=== PATIENT | female | born 1930 | race Caucasian/White ===

== ENCOUNTER 2016-10-25 14:54 | Emergency (ER) | payer MEDICARE, OTHER ==
[2016-10-25 15:02] VITALS: BP 138/56
--- OUTSIDE RECORDS SUMMARY | 2016-10-25 15:31 | XMS REPORT | Continuity of Care Document ---
:1930 Author Organization [facility] ([facility]) Address [address] [place] [address] Phone [phone] Care Team Providers Name Role Phone Anisa Shola Primary Care Provider [phone] Source Comments This disclosure is being made pursuant to the Care Everywhere program, applicable federal and state laws, and may not contain all informaitonavailable regarding this patient.[facility] ([facility]) Active Allergies and Adverse Reactions Allergen Noted Date Severity Reactions Comments No Known Drug Allergies 11/22/2008 NO REACTION Current Medications Prescription Sig. Disp. Refills Start Date End Date Status MULTIVITAMINS take by Active W-MINERALS/LUT (CENTRUM mouth. SILVER PO) predniSONE 5 mg tablet Take 5 mg by Active mouth daily. PROPRANOLOL 60 mg XR Take 60 mg by 08/05/2013 Active capsule mouth daily. levothyroxine 50 mcg tablet Every other 11/06/2015 Active day 75mg potassium chloride 10 mEq Take 10 mEq 11/22/2015 Active XR tablet by mouth daily. amLODIPine 5 mg tablet Take 1 tablet 90 tablet 3 01/01/2016 Active (5 mg total) by mouth daily. hydrochlorothiazide 25 mg Take 1 tablet 90 tablet 3 01/16/2016 Active tablet (25 mg total) by mouth daily. VIT Active C/E/ZN/COPPR/LUTEIN/ZEAXAN (PRESERVISION AREDS 2 PO) simvastatin 20 mg tablet Take 1 tablet 90 tablet 1 06/03/2016 Active (20 mg total) by mouth daily. levothyroxine 75 mcg tablet Take 75 mcg 08/08/2016 Active by mouth every 48 hours. enalapril 20 mg tablet Take 20 mg by Active mouth 2 times daily. chlorpheniramine-HYDROcodon Take 10 mL by Active e 8-10 mg/5 mL suspension mouth every 12 hours as needed. aspirin 325 mg tablet Take 325 mg Active by mouth 3 times daily. 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 Right Eye Left Eye Time To Recurrence: Time To Recurrence: Date VA (D cc) CMT Status Procedure VA (D cc) CMT Status Procedure Cmts 05/19/2001 PDT 08/19/2002 PDT 10/12/2002 PDT 01/13/2007 Phaco 07/02/2010 20/50 +2 277 Avastin #[id number] 20/200 ecc 322 08/06/2010 20/40 -1 269 Avastin #[id number] cf 4' 09/17/2010 20/35 +2 262 Avastin #103361-2 CF 4 11/12/201030-2+3 267 Avastin #[id number] 20/500 01/07/2011 2030 -2 267 Avastin 03/18/2011 20/40 +2 262 Avastin #[id number] 20/150 ec +1 05/28/2011 2040 -1 244 Avastin #718781-8 20/250 204 08/22/2011 20/25 264 Avastin #[id number] 20/400 11/06/2011 20/25 +3 262 Avastin #943257-3 20/800 290 01/16/12 20/32 Avastin [id number] 5/600 04/23/2012 20/25 avastin [id number] 20/500 07/23/2012 20/25+2 254 [id number] 20/500ecc 293 10/22/2012 20/20 -2 no injection 20/500 02/11/13 20/20-2 20/200 03/15/2013 20/20 no injection needed 20/150 04/26/13 2022-2 20/350 ec 06/21/2013 20/20 cc no injection needed 20/200ecc cc 09/04/2016 20/20-2 cc 20/300 ecc cc No injection this visit Paroxysmal atrial fibrillation Overview: Formatting of this note may be different from the original. CARDIOVASCULAR PROCEDURES ECHO/MUGA: Echo (Normal EF, Normal Valves) - 02/22/2003 STRESS TESTS: MPI (Normal EF, Possible Distal-Lateral vs Diaphragm Artifact, Possible Apical Scar) - 06/26/2004 VASCULAR: Carotid Duplex (Mild Disease in Bilateral ICAs, Vertebral: Bilateral Antegrade Flow) - 05/05/2007 Carotid Duplex (Vertebral: Bilateral Antegrade Flow) - 02/22/2003 Atypical chest pain Hypertension Hyperlipidemia Most Recent Encounters Date Type Specialty Providers Description 09/04/2016 Office Visit Ophthalmology - Chief Comp: Patient Specialty Reported Reason For Visit 09/04/2016 Office Visit Ophthalmology - Default, Other Dx: Exudative age- related Specialty Billg - Defo macular degeneration of [place], both eyes with inactive Sera Villar MD choroidal neovascularization (Primary Dx) 08/29/2016 Office Visit Heart and Vascular Estelle Dacosta MD Dx: Essential hypertension (Primary Dx) Social History Tobacco Use Types Packs/Day Years Used Date Never Smoker Smokeless Tobacco: Never Used Tobacco Cessation:Counseling Given: Yes Comments: Alcohol Use Drinks/Week oz/Week Comments No Last Filed Vital Signs Vital Sign Reading Time Taken Blood Pressure 125/70 08/29/2016 10:07 AM PHOSPHORIC ACID SUPERVISOR Pulse 74 08/29/2016 10:07 AM PHOSPHORIC ACID SUPERVISOR Temperature - - Respiratory Rate - - Height 1.676 m (5' 5.98") 08/29/2016 10:07 AM PHOSPHORIC ACID SUPERVISOR Weight 71.668 kg (158 lb) 08/29/2016 10:07 AM PHOSPHORIC ACID SUPERVISOR Body Mass Index 25.51 08/29/2016 10:07 AM PHOSPHORIC ACID SUPERVISOR Oxygen Saturation - - Plan of Care Date Type Specialty Providers Description 12/04/2016 Appointment Ophthalmology - Default, Other Chief Comp: Patient Specialty Billg - Defo Reported Reason For [address] [place] [address] [phone] (Fax) 12/10/2016 Appointment Heart and Vascular Estelle Dacosta MD Chief Comp: Patient [address] [place] [address] Visit [phone] (Fax) 03/04/2017 Appointment Ophthalmology - Brittney Dang MD Chief Comp: Patient Specialty [address] [place] [address] Visit [phone] (Fax) Health Maintenance Due Date Last Done Comments Hepatitis B Vaccine (1 of 3 - 1930 Primary Series) Tdap Vaccine 1942 DIABETIC: Cholesterol 1949 Diabetic: Hdl 1949 DIABETIC: Hemoglobin A1C 1949 Diabetic: Ldl 1949 DIABETIC: Microalbumin 1949 DIABETIC: Triglycerides 1949 Td Vaccine 1949 Colonoscopy 05/05/1981 Zoster Vaccine 1991 Osteoporosis Screening (DXA 1996 Bone Density) Pneumococcal Vaccine (1 of 2 1996 - PCV13) DIABETIC: Foot Exam 12/06/2015 Influenza Vaccine: Seasonal 02/26/2016 (#1) DIABETIC: Retinal Eye Exam 09/04/2017 09/04/2016, Additional history exists 06/05/2016, 03/05/2016 Results from Last 3 Months OCT MACULA RIGHT EYE (09/04/2016 9:47 AM) Narrative OD: 252 (248). Drusen, areas of atrophy. No subretinal fluid or IRF. Unchanged from prior.
--- NOTE | 2016-10-25 15:50 | ERNOTE ---
Trauma/Assault HPI - General Stated Complaint: FALL Time Seen by Provider: 10/25/16 15:00 Source: patient, family - Immun/Allergies/Home Medications Immunizations: IMMUNIZATION HX Immunizations Up to Date Yes History of Influenza Vaccine Yes Hx Pneumococcal Vaccination Yes Allergies/Adverse Reactions: Allergies No Known Allergies Allergy (Verified 10/25/16 15:06) Home Medications: HOME MEDICATIONS Aspirin/Calcium Carbonate/Mag [Aspirin Buffered 325 mg Tab] 325 mg PO DAILY 04/10 [Last Taken 09/05/13 04:00] Enalapril Maleate 40 mg PO DAILY 09/05/13 [Last Taken Unknown] Hydrochlorothiazide 25 mg PO DAILY 09/05/13 [Last Taken Unknown] Levothyroxine Sodium [Synthroid] 75 mcg PO MOWEFRSA 09/05/13 [Last Taken Unknown ] Multivit-Min/FA/Lycopene/Lut [Centrum Silver Tablet] 1 each PO DAILY 09/05/13 [ Last Taken Unknown] Potassium Chloride 10 meq PO DAILY 09/05/13 [Last Taken Unknown] Propranolol HCl [Propranolol HCl ER] 60 mg PO DAILY 09/05/13 [Last Taken Unknown ] Simvastatin 20 mg PO HS 09/05/13 [Last Taken Unknown] amLODIPine BESYLATE [Norvasc (Amlodipine)] 5 mg PO DAILY 09/05/13 [Last Taken Unknown] Beta-Carotene(A) W-C , E/Min [Ocuvite] 1 tab PO DAILY 10/25/16 [Last Taken Unknown] Ginkgo Biloba 2 cap PO DAILY 10/25/16 [Last Taken Unknown] HYDROcodone/CHLORPHEN P-STIREX [Tussionex Pennkinetic Suspension] 5 ml PO BID [Last Taken Unknown] Naproxen [Naprosyn] 500 mg PO BID #60 tablet 10/25/16 [Last Taken Unknown] metFORMIN HCL [Metformin HCl ER] 500 mg PO QAM 10/25/16 [Last Taken Unknown] traMADol HCL [Ultram] 50 mg PO QID PRN #20 tablet 10/25/16 [Last Taken Unknown] - History of Present Illness Narrative: Patient was trying to put her walker in her trunk and it got stuck in the cement. When she tried to pull extra hard and it came free she lost her balance and fell backward landing on her butt and straining her chest wall with some low back pain as well. She describes the pain as moderate in intensity and aching in nature. Location Occurred: Reports: street Pain Location: Reports: chest, other - lower back Method of Injury: Reports: direct blow Severity: moderate Loss of Consciousness: Reports: no loss of consciousness Associated Symptoms - Trauma: Reports: denies symptoms Review of Systems - Review of Systems Constitutional: Present: See HPI EYE: Present: no symptoms reported ENT: Present: no symptoms reported Respiratory: Present: See HPI Cardiology: Present: no symptoms reported Gastrointestinal/Abdominal: Present: no symptoms reported Genitourinary: Present: no symptoms reported Musculoskeletal: Present: See HPI Skin: Present: no symptoms reported Neurological: Present: no symptoms reported Endocrine: Present: no symptoms reported Hematologic/Lymphatic: Present: no symptoms reported Psych: Present: no symptoms reported - Patient's Past Medical History Patient History - Cardiac/Respiratory: Hypertension, Hyperlipidemia Patient History - Surgical Procedures: Total Hip Replacement, Other Patient History - Other: None - Social History Living Situations: alone Abuse History: No History of abuse Psych History: No pertinent hx Smoking Status: Never smoker Alcohol Use: none Drug Use: none - Immunizations Immunizations Up to Date: Yes Hx Pneumococcal Vaccination: Yes History of Influenza Vaccine: Yes Physical Exam - Physical Exam General Appearance: Present: wd/wn, alert, moderate distress Eye Exam: Normal inspection: bilateral, PERRL: bilateral Ears, Nose, Throat: Present: normal ENT inspection, H, normal pharynx Neck: Present: normal inspection, nontender Respiratory: Present: no respiratory distress, normal breath sounds, no accessory muscle use, lungs clear, chest tenderness - at about the T8 level Cardiovascular/Chest: Present: regular rate, rhythm, no murmur, normal peripheral pulses Gastrointestinal/Abdominal: Present: normal bowel sounds, nontender, nondistended, soft, no organomegaly Rectal Exam: Present: deferred Back Exam: Present: normal range of motion, other - lumbosacral tenderness to palpation Extremity Exam: Present: normal inspection, non-tender, no edema, normal range of motion Neurological Exam: Present: alert, oriented, normal mood/affect Skin Exam: Present: normal color, warm/dry Lymphatic Exam: Present: no adenopathy ED Progress - Results and Orders Patient's Lab Results:: I have reviewed the patient's lab results. - Vital Signs Patient's Vital Signs:: I have reviewed the patient's vital signs. Vital Signs: Vital Signs 10/25/16 14:57 Temperature 36.5 C Pulse Rate 87 Respiratory 16 Rate Blood Pressure 138/56 O2 Sat by Pulse 95 Oximetry - X-Ray X-Ray #1 X-Ray: chest Interpretation: Reviewed by me X-Ray #2 X-Ray: pelvis Interpretation: Reviewed by me X-Ray #3 X-Ray: lumbosacral Interpretation: Reviewed by me - Progress/Reassessment Chief Complaint: Fall Plan - Plan Plan: Patient presents with a new onset T8 compression fracture. Condition is no discernible neurologic deficit from this fracture and is able to get around somewhat although not quite as good as before. We will try very conservative treatment at home with the #1 NSAIDs and #2 tramadol for any breakthrough pain. She'll follow-up with her family doctor for any ongoing pain management and will discuss her rehabilitation from her hip replacement surgery with physical therapy. Departure Clinical Impression: Compression fracture of thoracic vertebra Qualifiers: Encounter type: initial encounter Fracture type: closed Qualified Code(s): S22.000A - Wedge compression fracture of unspecified thoracic vertebra, initial encounter for closed fracture - Departure Disposition: Home self-care Condition: Good Instructions: Spinal Compression Fracture Referrals: Shola Lange MD [Primary Care Provider] - Prescriptions: Naproxen [Naprosyn] 500 mg PO BID #60 tablet traMADol HCL [Ultram] 50 mg PO QID PRN #20 tablet PRN Reason: Moderate Pain
== END 2016-10-25 16:42 | disposition home or self-care (01) ==
LOC: ER 14:54
DX: S22.000A Wedge compression fracture of unspecified thoracic vertebra, initial encounter for closed fracture (principal); W01.0XXA Fall on same level from slipping, tripping and stumbling without subsequent striking against object, initial encounter; Y92.410 Unspecified street and highway as the place of occurrence of the external cause; Z96.649 Presence of unspecified artificial hip joint; I10 Essential (primary) hypertension; E78.5 Hyperlipidemia, unspecified

== ENCOUNTER 2016-10-29 10:02 | Emergency (ER) | payer MEDICARE, OTHER ==
--- OUTSIDE RECORDS SUMMARY | 2016-10-29 10:16 | XMS REPORT | Continuity of Care Document ---
:1930 Author Organization [facility] ([facility]) Address [address] [place] [address] Phone [phone] Care Team Providers Name Role Phone Anisa Shola Primary Care Provider [phone] Source Comments This disclosure is being made pursuant to the Care Everywhere program, applicable federal and state laws, and may not contain all informaitonavailable regarding this patient.[facility] ([facility]) Active Allergies and Adverse Reactions Allergen [...] 01/13/2007 Phaco 07/02/2010 20/50 +2 277 Avastin #[id number] 20/200 ecc 322 08/06/2010 20/40 -1 269 Avastin #[id number] cf 4' 09/17/2010 20/35 +2 262 Avastin #[id number] CF 4 11/12/201030-2+3 267 Avastin #[id number] 20/500 01/07/2011 2030 -2 267 Avastin 03/18/2011 20/40 +2 262 Avastin #[id number] 20/150 ec +1 05/28/2011 2040 -1 244 Avastin #[id number] 20/250 204 08/22/2011 20/25 264 Avastin #[id number] 20/400 11/06/2011 20/25 +3 262 Avastin #[id number] 20/800 290 01/16/12 20/32 Avastin [id number] 5/600 04/23/2012 20/25 avastin 159068-2 20/500 07/23/2012 20/25+2 254 [id number] 20/500ecc 293 10/22/2012 20/20 -2 no injection [...] Taken Blood Pressure 125/70 08/29/2016 10:07 AM BOOMSWING OPERATOR Pulse 74 08/29/2016 10:07 AM BOOMSWING OPERATOR Temperature - - Respiratory Rate - - Height 1.676 m (5' 5.98") 08/29/2016 10:07 AM BOOMSWING OPERATOR Weight 71.668 kg (158 lb) 08/29/2016 10:07 AM BOOMSWING OPERATOR Body Mass Index 25.51 08/29/2016 10:07 AM BOOMSWING OPERATOR Oxygen Saturation - - Plan of Care Date Type Specialty Providers Description 12/04/2016 Appointment Ophthalmology - Default, Other Chief Comp: Patient Specialty Billg - Defo Reported Reason For [address] [place] [address] [phone] (Fax) 12/10/2016 Appointment Heart and Vascular Estelle Dacosta MD Chief Comp: Patient [address] [place] [address] Visit [phone] (Fax) 03/04/2017 Appointment Ophthalmology - Brittney Dang MD Chief Comp: Patient Specialty [address] [place] [address] Visit [phone] (Fax) Health Maintenance Due Date Last Done [...]
--- NOTE | 2016-10-29 13:21 | ERNOTE ---
Back Pain ER HPI Date of Service: 10/29/16 Presenting Symptoms: injury/pain to back Time Seen by Provider: 10/29/16 10:10 Source: patient Exam Limitations: no limitations Immunizations: IMMUNIZATION HX Immunizations Up to Date Yes History of Influenza Vaccine Yes Hx Pneumococcal Vaccination Yes Allergies/Adverse Reactions: Allergies No Known Allergies Allergy (Verified 10/29/16 10:29) Home Medications: HOME MEDICATIONS Aspirin/Calcium Carbonate/Mag [Aspirin Buffered 325 mg Tab] 325 mg PO DAILY 04/10 [Last Taken 09/05/13 04:00] Enalapril Maleate 40 mg PO DAILY 09/05/13 [Last Taken Unknown] Hydrochlorothiazide 25 mg PO DAILY 09/05/13 [Last Taken Unknown] Levothyroxine Sodium [Synthroid] 75 mcg PO MOWEFRSA 09/05/13 [Last Taken Unknown ] Multivit-Min/FA/Lycopene/Lut [Centrum Silver Tablet] 1 each PO DAILY 09/05/13 [ Last Taken Unknown] Potassium Chloride 10 meq PO DAILY 09/05/13 [Last Taken Unknown] Propranolol HCl [Propranolol HCl ER] 60 mg PO DAILY 09/05/13 [Last Taken Unknown ] Simvastatin 20 mg PO HS 09/05/13 [Last Taken Unknown] amLODIPine BESYLATE [Norvasc (Amlodipine)] 5 mg PO DAILY 09/05/13 [Last Taken Unknown] Beta-Carotene(A) W-C , E/Min [Ocuvite] 1 tab PO DAILY 10/25/16 [Last Taken Unknown] Ginkgo Biloba 2 cap PO DAILY 10/25/16 [Last Taken Unknown] Naproxen [Naprosyn] 500 mg PO BID #60 tablet 10/25/16 [Last Taken Unknown] metFORMIN HCL [Metformin HCl ER] 500 mg PO QAM 10/25/16 [Last Taken Unknown] traMADol HCL [Ultram] 50 mg PO QID PRN #20 tablet 10/25/16 [Last Taken Unknown] Hydrocodone/Chlorpheniramine [Vituz Solution] 5 ml PO BID 10/29/16 [Last Taken Unknown] Narrative: 86-year-old female presenting to the emergency room after she fell at home landing on her back. He fell and hurt her back on . Patient has significant back pain tender to touch. Patient states she was bending over to pick something up when she fell landing on her back. Date (Duration): 10/29/16 Timing: Reports: constant Quality/Severity: Reports: mild Location of pain: Reports: mid back Body Front/Back Adult: 1 - pain to this area here Recent Injury?: Reports: yes Possible Precipitating Factor: Reports: fall/near fall Modifying Factors - (Improves): Reports: nothing Modifying Factors - (Worsens): Reports: supine position Associated Symptoms: Denies: fever/chills, sweating, problems urinating, difficulty walking, lightheadedness, numbess/weakness in legs Prior Treament: Reports: recently seen - on 10/25 r/t fall with compression fracture dx Review of Systems - Review of Systems Constitutional: Present: no symptoms reported. Absent: weakness, malaise, weight loss - son states she has had poor po intake EYE: Present: no symptoms reported. Absent: blurred vision ENT: Present: no symptoms reported Respiratory: Present: no symptoms reported. Absent: shortness of breath Cardiology: Present: no symptoms reported. Absent: syncope, edema Gastrointestinal/Abdominal: Present: no symptoms reported Genitourinary: Present: no symptoms reported Musculoskeletal: Present: See HPI, back pain Skin: Present: no symptoms reported Neurological: Present: no symptoms reported. Absent: headache, dizziness/light- headedness, numbness, tingling Endocrine: Present: no symptoms reported Hematologic/Lymphatic: Present: no symptoms reported Psych: Present: no symptoms reported - Narrative Narrative: pt recently fell and dx with a compression fx of T8 - Patient's Past Medical History Patient History - Medical: Arthritis, Cataracts, Diabetes Type 2, UTI'S Patient History - Cardiac/Respiratory: Hypertension, Hyperlipidemia Patient History - Cancer: No Hx of Cancer Patient History - Surgical Procedures: Total Hip Replacement, T & A Patient History - Other: None LMP (females 10-50): Menopausal - Social History Living Situations: alone Abuse History: No History of abuse Psych History: No pertinent hx Alcohol Use: none Drug Use: none - Immunizations Immunizations Up to Date: Yes Hx Pneumococcal Vaccination: Yes History of Influenza Vaccine: Yes Physical Exam - Physical Exam Narrative: 86-year-old patient arrived via EMS status post fall. Patient states she was getting out of bed using her walker bending over to pick something up and fell landing on her back. States that she had taken her pain medicine prior to her fall. She does have some discomfort but it is able to be relieved with positioning on the stretcher. denies hitting her head. General Appearance: Present: wd/wn, alert, no apparent distress Eye Exam: Normal inspection: bilateral Ears, Nose, Throat: Present: normal ENT inspection Neck: Present: normal inspection, nontender, full range of motion Respiratory: Present: no respiratory distress, lungs clear Cardiovascular/Chest: Present: regular rate, rhythm, no murmur Peripheral Pulses: N=norm/S=strong/W=weak/B=bound/A=absent: Dorsalis-pedis (R): Normal, Dorsalis-pedis (L): Normal Gastrointestinal/Abdominal: Present: normal bowel sounds, nontender, soft Back Exam: Present: vertebral tenderness Extremity Exam: Present: normal inspection, no edema Neurological Exam: Present: alert, oriented, normal mood/affect Skin Exam: Present: normal color Lymphatic Exam: Present: no adenopathy ED Progress - Vital Signs Vital Signs: Vital Signs 10/29/16 10/29/16 10/29/16 10:10 10:31 11:20 Temperature 36.9 C 36.9 C Pulse Rate 94 96 Respiratory 14 Rate Blood Pressure 163/79 163/79 190/88 O2 Sat by Pulse 95 92 Oximetry 10/29/16 10/29/16 10/29/16 11:35 12:05 12:35 Temperature Pulse Rate 99 90 91 Respiratory Rate Blood Pressure 188/74 164/75 175/76 O2 Sat by Pulse 93 94 96 Oximetry - X-Ray X-Ray #1 X-Ray: thoracic Interpretation: Reviewed by me X-ray Comments: The imaging was compared to previous chest x-ray from 10/25/2016, which demonstrates compression deformity within the mid thoracic spine, which was previously characterized as being on T8. I believe the level might have been miscounted and this may have been due to obscuration of the lower thoracic spine to allow for counting of the ribs, and overall the current examination most likely represents stable appearance of a T7 compression fracture. This could still represent acute on chronic fracture and clinical correlation is advised. Follow-up by routine thoracic spine MRI can be considered unless otherwise clinically indicated. Electronically signed by Elizabeth Walker M.D.. - Progress/Reassessment Chief Complaint: Back Pain Progress:: Improved Plan - Plan Plan: This provider spoke with the patient's primary care physician. He has been updated regarding her fall and request a secondary follow-up apt. Physician is also aware that a family independence case manager has been involved regarding patient's frequent falls the need for possible assistance at home versus assisted living. Patient is also aware of family's concerns regarding her need for assistance at home or assisted living. Patient agrees to these recommendations. Departure Clinical Impression: Compression fracture of thoracic vertebra Qualifiers: Encounter type: initial encounter Fracture type: closed Qualified Code(s): S22.000A - Wedge compression fracture of unspecified thoracic vertebra, initial encounter for closed fracture - Departure Disposition: Home Follow Up Needed Condition: Stable Instructions: Spinal Compression Fracture Additional Instructions: continue previous home medications and previous orders regarding compression fraction. Follow-up with your primary care doctor tomorrow. you may continue previous home pain medication as directed. return to the emergency room if symptoms persist or you develop increased pain in her back or numbness or tingling in her lower extremities. May use ice or heat 20 Minutes on and 20 min off. . Referrals: Shola Lange MD [Staff Physician] -
[2016-10-29 13:34] VITALS: BP 151/74
== END 2016-10-29 14:06 | disposition home or self-care (01) ==
LOC: ER 10:02
DX: S22.000A Wedge compression fracture of unspecified thoracic vertebra, initial encounter for closed fracture (principal); W06.XXXA Fall from bed, initial encounter; Z91.81 History of falling; Y93.89 Activity, other specified; Y92.003 Bedroom of unspecified non-institutional (private) residence as the place of occurrence of the external cause; M19.90 Unspecified osteoarthritis, unspecified site; E78.5 Hyperlipidemia, unspecified; E11.9 Type 2 diabetes mellitus without complications; I10 Essential (primary) hypertension

== ENCOUNTER 2016-11-07 08:38 | Inpatient (IN) | payer MEDICARE, OTHER ==
--- OUTSIDE RECORDS SUMMARY | 2016-11-07 09:58 | XMS REPORT | Continuity of Care Document ---
:1930 Author Organization [facility] ([facility]) Address [address] [place] [address] Phone [phone] Care Team Providers Name Role Phone Anisa Shola Primary Care Provider [phone] Source Comments This disclosure is being made pursuant to the Care Everywhere program, applicable federal and state laws, and may not contain all informaitonavailable regarding this patient.[facility] ([facility]) Active Allergies and Adverse Reactions Allergen [...] 01/13/2007 Phaco 07/02/2010 20/50 +2 277 Avastin #[id number] 20/200 ecc 322 08/06/2010 20/40 -1 269 Avastin #[id number] cf 4' 09/17/2010 20/35 +2 262 Avastin #[id number] CF 4 11/12/201030-2+3 267 Avastin #[id number] 20/500 01/07/2011 2030 -2 267 Avastin 03/18/2011 20/40 +2 262 Avastin #[id number] 20/150 ec +1 05/28/2011 2040 -1 244 Avastin #[id number] 20/250 204 08/22/2011 20/25 264 Avastin #[id number] 20/400 11/06/2011 20/25 +3 262 Avastin #[id number] 20/800 290 01/16/12 20/32 Avastin [id number] 5/600 04/23/2012 20/25 avastin [id number] 20/500 07/23/2012 20/25+2 254 [id number] 20/500ecc 293 10/22/2012 20/20 -2 no injection [...] Taken Blood Pressure 125/70 08/29/2016 10:07 AM CLINICAL REVIEW SPECIALIST Pulse 74 08/29/2016 10:07 AM CLINICAL REVIEW SPECIALIST Temperature - - Respiratory Rate - - Height 1.676 m (5' 5.98") 08/29/2016 10:07 AM CLINICAL REVIEW SPECIALIST Weight 71.668 kg (158 lb) 08/29/2016 10:07 AM CLINICAL REVIEW SPECIALIST Body Mass Index 25.51 08/29/2016 10:07 AM CLINICAL REVIEW SPECIALIST Oxygen Saturation - - Plan of Care Date Type Specialty Providers Description 12/04/2016 Appointment Ophthalmology - Default, Other Chief Comp: Patient Specialty Billg - Defo Reported Reason For [address] [place] [address] [phone] (Fax) 12/10/2016 Appointment Heart and Vascular Estelle Dacosta MD Chief Comp: Patient [address] [place] [address] Visit [phone] (Fax) 03/04/2017 Appointment Ophthalmology - Brittney Dang MD Chief Comp: Patient Specialty [address] [place] [address] Visit [phone] (Fax) Health Maintenance Due Date Last Done [...]
[2016-11-07] MEDS ORDERED: ONDANSETRON HCL/PF 2 MG/ML VIAL IV PRN (10:16)
[2016-11-07] MEDS ORDERED: HYDROmorphone HCL 1 MG/ML DISP.SYRIN IV ONE (11:30)
[2016-11-07] MEDS: POTASSIUM CHLORIDE 40 MEQ in NORMAL SALINE 1,000 ML IV SCH ×2 (11:43→20:03)
[2016-11-07] MEDS ORDERED: BISACODYL 10 MG SUPP.RECT RC PRN (12:40)
[2016-11-07] MEDS ORDERED: SUCRALFATE 1 G/10 ML UDC PO ONE (14:17)
--- NOTE | 2016-11-07 14:17 | HP ---
Chief Complaint - Chief Complaint Date of Service: 11/07/16 Time of Service: 09:00 Chief Complaint: Fatigue, abdominal pain History of Present Illness: Pt. presented to office in moderate distress complaining of fatigue, malaise, band like squeezing that comes and goes just below her bra line. She states that she has finally had a BM that was normal yesterday and doesn't feel abdominal upset like she did. No hemotemisis or hematochezia or GERD sx. She mainly states that the pain is her biggest issue and she hasn't been eating well because of the pain. She had been taking naproxen but that was stopped a few days ago. Labs were done in the office that showed: Anemia 11.2 which is stable from a previous recent 11.4 (down from prior 14 though) Sodium of 128 potassium of 3.0 She was admitted for IVF to try to correct the sodium and potassium and to control her pain. Additional tx for her stomach will also be done. - Patient's Past Medical History Patient History - Medical: Arthritis, Cataracts, Diabetes Type 2, UTI'S Patient History - Cardiac/Respiratory: Hypertension, Hyperlipidemia Patient History - Cancer: No Hx of Cancer Patient History - Surgical Procedures: Total Hip Replacement, T & A Patient History - Other: None - Family History Mother Family History - Medical: , Dementia Family History - Cardiac/Respiratory: No pertinent hx Father Family History - Medical: Family History - Cardiac/Respiratory: COPD Family History - Cancer: No pertinent family hx - Social History Living Situations: assisted living Abuse History: No History of abuse Psych History: No pertinent hx Smoking Status: Never smoker Have you smoked in the past 12 months: No Do you dip or chew tobacco: No Alcohol Use: none Drug Use: none - Immunizations Immunizations Up to Date: Yes Hx Pneumococcal Vaccination: Yes History of Influenza Vaccine: Yes Review Of Systems (GEN) - Review of Systems Generalized/Overall Review: Present: Weakness, Malaise, Fatigue. Absent: Chills , Fever EENTM: Present: No Symptoms Reported Respiratory: Present: No Symptoms Reported Cardiac: Present: No Symptoms Reported Abdominal: Present: Nausea, Abdominal Pain. Absent: Hematemesis, Constipation, Diarrhea, Melena, Bright blood from rectum Genitourinary: Present: No Symptoms Reported Musculoskeletal: Present: Back Pain Neurological: Present: Anxiety, Weakness Skin: Present: No Symptoms Reported Endocrine: Present: No Symptoms Reported - reports sugars have been ok Immunizations: IMMUNIZATION HX Immunizations Up to Date Yes History of Influenza Vaccine Yes Hx Pneumococcal Vaccination Yes Allergies/Adverse Reactions: Allergies Allergy/AdvReac Type Severity Reaction Status Date / Time No Known Allergies Allergy Verified 11/07/16 11:16 Home Medications: HOME MEDICATIONS Enalapril Maleate 40 mg PO DAILY 09/05/13 [Last Taken Unknown] Hydrochlorothiazide 25 mg PO DAILY 09/05/13 [Last Taken Unknown] Levothyroxine Sodium [Synthroid] 75 mcg PO Q48H 09/05/13 [Last Taken 11/07/16] Multivit-Min/FA/Lycopene/Lut [Centrum Silver Tablet] 1 each PO DAILY 09/05/13 [ Last Taken Unknown] Potassium Chloride 10 meq PO DAILY 09/05/13 [Last Taken Unknown] Propranolol HCl [Propranolol HCl ER] 60 mg PO DAILY 09/05/13 [Last Taken Unknown ] Simvastatin 20 mg PO HS 09/05/13 [Last Taken Unknown] amLODIPine BESYLATE [Norvasc (Amlodipine)] 5 mg PO DAILY 09/05/13 [Last Taken Unknown] Ginkgo Biloba 2 cap PO DAILY 10/25/16 [Last Taken Unknown] Naproxen [Naprosyn] 500 mg PO BID #60 tablet 10/25/16 [Last Taken Unknown] metFORMIN HCL [Metformin HCl ER] 500 mg PO QAM 10/25/16 [Last Taken Unknown] traMADol HCL [Ultram] 50 mg PO QID PRN #20 tablet 10/25/16 [Last Taken Unknown] Hydrocodone/Chlorpheniramine [Vituz Solution] 5 ml PO BID 10/29/16 [Last Taken Unknown] Aspirin 325 mg PO BID 11/07/16 [Last Taken Unknown] Beta-Carotene(A) W-C , E/Min [Ocuvite] 1 tab PO DAILY 11/07/16 [Last Taken Unknown] Bisacodyl [Dulcolax Suppository] 10 mg RC DAILY PRN 11/07/16 [Last Taken Unknown ] Levothyroxine Sodium [Synthroid] 50 mcg PO Q48H 11/07/16 [Last Taken 11/06/16] Omeprazole 20 mg PO DAILY 11/07/16 [Last Taken Unknown] predniSONE [Prednisone] 5 mg PO DAILY 11/07/16 [Last Taken Unknown] tiZANidine HCL [Zanaflex] 2 mg PO HS 11/07/16 [Last Taken Unknown] Exam - Exam Vital Signs: Vital Signs - Last Taken Temp 36.7 C 11/07/16 11:16 Pulse 78 11/07/16 11:16 Resp 18 11/07/16 11:16 BP 182/52 11/07/16 11:16 Pulse Ox 98 11/07/16 11:16 Constitutional: Present: Alert, Oriented x3, Moderate distress, Elderly ENT Exam: Present: hearing grossly normal Eye Exam: bilateral eye: normal inspection, PERRL, EOMI Neck: Present: supple Back Exam: Present: vertebral tenderness Respiratory: Present: lungs clear, normal breath sounds, no respiratory distress , no accessory muscle use Cardiovascular/Chest: Present: regular rate, rhythm, no murmur Peripheral Pulses: dorsalis-pedis (R): 2+, dorsalis-pedis (L): 2+ Abdomen: Present: Normal bowel sounds, soft, nontender, no rebound tenderness, no hepatospenomegaly /Rectal: Present: Exam deferred Extremity: Present: no pedal edema, no calf tenderness Skin Exam: Present: normal color Neurologic: Present: oriented x 3 Appearance: Present: appropriate appearance, appropriate insight Eye contact: Present: cooperative, good eye contact, normal speech Thoughts: Present: normal thought pattern, no apparent hallucination Assessment/Plan - Assessment/Plan (1) Hypokalemia Assessment: will do K in IVF 40meq in each of 2 L Problem: Acute (2) Anemia Assessment: stable, follow for now Problem: Acute Qualifiers: Anemia type: other cause (3) Abdominal pain Assessment: Believe may be PUD, continue omeprazole, add carafate. Problem: Acute Qualifiers: Abdominal location: epigastric Qualified Code(s): R10.13 - Epigastric pain (4) Hyponatremia Assessment: will try to correct with IVF. if this doesn't improve things quickly will change to 3%saline Problem: Acute (5) Compression fracture of thoracic vertebra Assessment: pain does not appear to be controlled with PO meds. Will do trial with different regimen to see if we can come up with a better outpt regimen, though will continue oxycodone for now as well. IV dilaudid will be trialed, consider mscontin or oxycontin. Problem: Acute (6) Discharge planning issues Assessment: discharge vs. making inpatient will be determined by whether her sodium corrects overnight or not and whether any additional investigations may need to be done. Problem: Acute (7) Diabetes Assessment: will do consistent carb diet. consider accuchecks but her sugars have been good at home. Problem: Acute Qualifiers: Diabetes mellitus type: type 2 Diabetes mellitus complication status: without complication
[2016-11-07] MEDS ORDERED: METHYLPREDNISOLONE SOD SUCC/PF 40 MG/ML VIAL IV ONE (14:56)
[2016-11-07] MEDS: oxyCODONE HCL 5 MG TABLET PO PRN ×2 (15:10→20:20)
[2016-11-07] MEDS ORDERED: METHYLPREDNISOLONE SOD SUCC 80 MG in WATER FOR INJ.,BACTERIOSTATIC 0 ML IV ONE (15:30)
[2016-11-07] MEDS: MORPHINE SULFATE 15 MG TABLET.SA PO SCH (16:56)
[2016-11-07] MEDS: SUCRALFATE 1 G/10 ML UDC PO SCH ×2 (16:56→19:59)
[2016-11-07] MEDS: SIMVASTATIN 20 MG TABLET PO SCH (19:59)
[2016-11-07] MEDS: PROPRANOLOL HCL 60 MG CAPSULE.SA PO SCH (20:04)
[2016-11-08] MEDS: oxyCODONE HCL 5 MG TABLET PO PRN ×3 (02:40→20:20)
[2016-11-08] MEDS: MORPHINE SULFATE 15 MG TABLET.SA PO SCH ×2 (04:13→17:05)
[2016-11-08 06:46] LABS: Albumin * 2.6 gm/dl (3.4-5.0); Anion Gap 12.3 mmol/L (6.8-13.8); BUN/Creatinine Ratio 14.5 (9.0-21.6); Bilirubin, Total 0.4 mg/dL (0.0-1.1); Ca. Corrected For Albumin 8.7 mg/dL (8.4-10.2); Calcium * 7.9 mg/dL (7.9-10.9); Carbon Dioxide 26.1 mmol/L (24-32.6); Potassium 4.4 mmol/L (3.4-4.6); Total Protein 6.3 gm/dL (6.2-8.2)
--- NOTE | 2016-11-08 06:58 | PN ---
Progess Note - Interim Narrative: 11/08/16 06:55 Still having pain at times, but seems better controlled with the MsContin. Labs still pending this am. Will continue carafate, do a couple more doses of solumedrol and continue IVF NS for now pending lab results. Still believe her pain is mainly due to compression fracture, PUD, more doubtful this is ischemic bowel. Anticipate her being discharged later today.
[2016-11-08] MEDS ORDERED: LEVOTHYROXINE SODIUM 50 MCG TABLET PO SCH (07:00)
[2016-11-08] MEDS: SUCRALFATE 1 G/10 ML UDC PO SCH ×4 (07:04→20:19)
[2016-11-08] MEDS: PANTOPRAZOLE SODIUM 20 MG TABLET.DR PO SCH (07:04)
[2016-11-08] MEDS: METHYLPREDNISOLONE SOD SUCC 80 MG in WATER FOR INJ.,BACTERIOSTATIC 0 ML IV SCH ×3 (07:57→18:30)
[2016-11-08] MEDS: NORMAL SALINE 1,000 ML IV PRN (10:01)
[2016-11-08] MEDS: ENALAPRIL MALEATE 20 MG TABLET PO SCH (10:02)
[2016-11-08] MEDS: HYDROCHLOROTHIAZIDE 25 MG TABLET PO SCH (10:02)
--- NOTE | 2016-11-08 13:56 | PN ---
Subjective - Date and Time Seen Date: 11/08/16 Time: 13:50 Subjective Narrative: Feeling better, appetite better, pain still troublesome but is also improved. Weakness is better but still requiring a little assistance to get around. Objective - Review of Systems Generalized/Overall Review: Reports: Weakness EENTM: Reports: No Symptoms Reported Respiratory: Reports: No Symptoms Reported Cardiac: Reports: No Symptoms Reported Abdominal: Reports: Nausea, Abdominal Pain. Denies: Constipation, Diarrhea Genitourinary Symptoms: Reports: No Symptoms Reported Musculoskeletal Complaints: Reports: Back Pain Neurological: Reports: Weakness Skin: Reports: No Symptoms Reported Endocrine: Reports: No Symptoms Reported - Vitals Vitals: Last Vital Signs Temp 36.7 C 11/08/16 11:18 Pulse 79 11/08/16 11:18 Resp 18 11/08/16 11:18 BP 146/47 11/08/16 11:18 Pulse Ox 96 11/08/16 11:18 - Abnormal Lab Findings Abnormal Lab Findings: Abnormal Lab Results 11/08/16 Range/Units 05:40 Sodium 129 L (132-142) mmol/L Chloride 95 L (97-106) mmol/L Random Glucose 216 H D (70-110) mg/dL Albumin 2.6 L (3.4-5.0) gm/dl - Exam Constitutional: Present: Alert, Oriented x3, Cooperative, Mild distress, Elderly ENT Exam: Present: hearing grossly normal Neck: Present: supple Respiratory: Present: lungs clear, normal breath sounds, no respiratory distress , no accessory muscle use Cardiovascular/Chest: Present: regular rate, rhythm, no murmur Abdomen: Present: Normal bowel sounds, soft, nontender, no rebound tenderness, no hepatospenomegaly Extremity: Present: no calf tenderness Skin Exam: Present: normal color Neurologic: Present: normal mood/affect, oriented x 3 Appearance: Present: appropriate appearance, appropriate insight, neat Eye contact: Present: cooperative, good eye contact, normal speech Thoughts: Present: normal thought pattern, no apparent hallucination Assessment/Plan - Problems/Diagnosis (1) Hypokalemia Problem: Resolved Narrative: resolved. (2) Anemia Problem: Acute Qualifiers: Anemia type: other cause Narrative: stable no tx at this time (3) Abdominal pain Problem: Acute Qualifiers: Abdominal location: epigastric Qualified Code(s): R10.13 - Epigastric pain (4) Hyponatremia Problem: Acute Narrative: levels still low, will contine IVF and see if she won't improve her PO intake. repeat Na in am. Possibly start 3% saline this pm (5) Compression fracture of thoracic vertebra Problem: Acute Narrative: pain is better controlled with combination of Ms Contin and oxycodone. will continue unchanged for now. Steroids also may have helped so will continue these as well. (6) Discharge planning issues Problem: Acute Narrative: hopefully home tomorrow. (7) Diabetes Problem: Acute Qualifiers: Diabetes mellitus type: type 2 Diabetes mellitus complication status: without complication Narrative: sugars high this am, will start accuchecks and lose dose SSI.
[2016-11-08] MEDS ORDERED: SODIUM CHLORIDE 3 % 500 ML IV SCH (14:00)
[2016-11-08] MEDS: INSULIN REGULAR, HUMAN 100 UNITS/ML VIAL SC SCH ×2 (17:43→20:21)
[2016-11-08] MEDS: PROPRANOLOL HCL 60 MG CAPSULE.SA PO SCH (18:17)
[2016-11-08] MEDS: SIMVASTATIN 20 MG TABLET PO SCH (20:20)
[2016-11-09] MEDS: METHYLPREDNISOLONE SOD SUCC 80 MG in WATER FOR INJ.,BACTERIOSTATIC 0 ML IV SCH ×3 (02:20→07:24)
[2016-11-09] MEDS: NORMAL SALINE 1,000 ML IV PRN (03:46)
[2016-11-09] MEDS: MORPHINE SULFATE 15 MG TABLET.SA PO SCH (03:49)
[2016-11-09] MEDS: oxyCODONE HCL 5 MG TABLET PO PRN ×2 (03:49→11:24)
[2016-11-09 05:27] LABS: Anion Gap 12.3 mmol/L (6.8-13.8); BUN/Creatinine Ratio 21.5 (9.0-21.6); Carbon Dioxide 29.3 mmol/L (24-32.6); Estimated Creat Clear 61.5; Potassium 3.6 mmol/L (3.4-4.6)
[2016-11-09 06:20] VITALS: BP 153/56
[2016-11-09] MEDS ORDERED: LEVOTHYROXINE SODIUM 75 MCG TABLET PO SCH (07:00)
[2016-11-09] MEDS: PANTOPRAZOLE SODIUM 20 MG TABLET.DR PO SCH (07:14)
[2016-11-09] MEDS: SUCRALFATE 1 G/10 ML UDC PO SCH ×2 (07:14→11:25)
[2016-11-09] MEDS: INSULIN REGULAR, HUMAN 100 UNITS/ML VIAL SC SCH (07:15)
--- NOTE | 2016-11-09 08:49 | DS ---
(1) Hypokalemia Problem: Resolved (2) Anemia Problem: Acute Qualifiers: Anemia type: other cause (3) Abdominal pain Problem: Acute Qualifiers: Abdominal location: epigastric Qualified Code(s): R10.13 - Epigastric pain (4) Hyponatremia Problem: Acute (5) Compression fracture of thoracic vertebra Problem: Acute (6) Discharge planning issues Problem: Acute (7) Diabetes Problem: Acute Qualifiers: Diabetes mellitus type: type 2 Diabetes mellitus complication status: without complication Description of Stay: Pt. admitted for JSOE abdominal pain concerning for a bleeding ulcer given drop in Hb; vertebral fx with severe pain; hyponatremia, hypokalemia with associated weakness and unable to take reasonable PO therefore the need for fluids to correct. Abdominal pain/PUD: pt. continued on omeprazole and had carafate added. This along with IVF seemed to improve her appetite and she was taking good po at time of discharge. Vertebral fx with severe pain: Pt. was continued on prn oxycodone, but was started on scheduled MSContin which seemed to give her more consistent pain control. 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 DM: sugars were high on IV steroids. expect this to resolve as she goes home off the steroids and resumes normal activity and diet. She was on a consistent carb diet here. If sugars remain high we can restart metformin at home. Hyponatremia: 128 on admit. she was on NS for 36hrs without any significant improvements in her Na levels. 500ml of 3% run at 60ml/hr x 1, then continued on NS and her sodium corrected the am of d/c to 137. Hypokalemia: 3.0 on admit. corrected within 24hrs with 2 40Meq in 2 L NS. no additional tx done, should stay at reasonable level with her being able to take PO again. Anemia: Hb was 11.2, no signs of continued bleeding. Believe source was stomach therefore carafate added to her omeprazole. Will follow this outpt. No hemodynamic instability from this level. Pt. was ambulating with a walker without assistance, smiling and full of energy at time of discharge. She was alert and oriented and definitely ready to be discharged. Procedures Performed: none Discharge Disposition: [facility] Disposition: [facility] Condition: Good Discharge Activity: Activity as tolerated - use walker when ambulating. Discharge Diet: Consistent carbs Referrals: Shola Lange MD [Primary Care Provider] - One Week Additional Patient Instructions (free text): Resume [facility] at discharge. Please fax orders upon discharge and call report. Prescriptions (Any new or edited meds): Morphine Sulfate [Ms Contin] 15 mg PO Q12H #30 tablet. Sucralfate [Carafate Suspension] 1 g PO ACHS #120 udc Complete Home Medications List: Complete Home Medication List: Enalapril Maleate 40 mg PO DAILY 09/05/13 Hydrochlorothiazide 25 mg PO DAILY 09/05/13 Levothyroxine Sodium [Synthroid] 75 mcg PO Q48H 09/05/13 Multivit-Min/FA/Lycopene/Lut [Centrum Silver Tablet] 1 each PO DAILY 09/05/13 Potassium Chloride 10 meq PO DAILY 09/05/13 Propranolol HCl [Propranolol HCl ER] 60 mg PO DAILY 09/05/13 Simvastatin 20 mg PO HS 09/05/13 amLODIPine BESYLATE [Norvasc] 5 mg PO DAILY 09/05/13 metFORMIN HCL [Metformin HCl ER] 500 mg PO QAM 10/25/16 traMADol HCL [Ultram] 50 mg PO QID PRN #20 tablet 10/25/16 Hydrocodone/Chlorpheniramine [Vituz Solution] 5 ml PO BID 10/29/16 Aspirin 325 mg PO BID 11/07/16 Beta-Carotene(A) W-C , E/Min [Ocuvite] 1 tab PO DAILY 11/07/16 Bisacodyl [Dulcolax Suppository] 10 mg RC DAILY PRN 11/07/16 Levothyroxine Sodium [Synthroid] 50 mcg PO Q48H 11/07/16 Omeprazole 20 mg PO DAILY 11/07/16 predniSONE [Prednisone] 5 mg PO DAILY 11/07/16 tiZANidine HCL [Zanaflex] 2 mg PO HS 11/07/16 Morphine Sulfate [Ms Contin] 15 mg PO Q12H #30 tablet.sa 11/09/16 Morphine Sulfate [Ms Contin] 15 mg PO Q12H #30 tablet. 11/09/16 Sucralfate [Carafate Suspension] 1 g PO ACHS #120 udc 11/09/16
[2016-11-09] MEDS: ENALAPRIL MALEATE 20 MG TABLET PO SCH (08:50)
[2016-11-09] MEDS: HYDROCHLOROTHIAZIDE 25 MG TABLET PO SCH (08:50)
== END 2016-11-09 11:30 | disposition home health service (06) | DRG 641 ==
LOC: MS 08:38 → OBSVTOIN 11-08 08:38
PROVIDERS: ADMIT Family Medicine; ATTEND Family Medicine
DX: E87.1 Hypo-osmolality and hyponatremia (principal); E87.6 Hypokalemia; R10.13 Epigastric pain; M48.54XD Collapsed vertebra, not elsewhere classified, thoracic region, subsequent encounter for fracture with routine healing; E11.9 Type 2 diabetes mellitus without complications; I10 Essential (primary) hypertension; E78.5 Hyperlipidemia, unspecified; Z79.82 Long term (current) use of aspirin
CPT/HCPCS: 36415; 80048; 80053; 87081; G0378; G0379

== ENCOUNTER 2016-11-11 08:57 | Emergency (ER) | payer MEDICARE, OTHER ==
[2016-11-11] MEDS ORDERED: HYDROmorphone HCL 1 MG/ML DISP.SYRIN IV ONE (10:21)
--- NOTE | 2016-11-11 10:24 | ERNOTE ---
Back Pain ER HPI Date of Service: 11/11/16 Presenting Symptoms: injury/pain to back, hx chronic back pain Time Seen by Provider: 11/11/16 10:05 Source: patient Exam Limitations: no limitations Immunizations: IMMUNIZATION HX Immunizations Up to Date Yes History of Influenza Vaccine Yes Hx Pneumococcal Vaccination Yes Allergies/Adverse Reactions: Allergies No Known Allergies Allergy (Verified 11/11/16 09:06) Home Medications: HOME MEDICATIONS Enalapril Maleate 40 mg PO DAILY 09/05/13 [Last Taken Unknown] Hydrochlorothiazide 25 mg PO DAILY 09/05/13 [Last Taken Unknown] Levothyroxine Sodium [Synthroid] 75 mcg PO Q48H 09/05/13 [Last Taken 11/07/16] Multivit-Min/FA/Lycopene/Lut [Centrum Silver Tablet] 1 each PO DAILY 09/05/13 [ Last Taken Unknown] Potassium Chloride 10 meq PO DAILY 09/05/13 [Last Taken Unknown] Propranolol HCl [Propranolol HCl ER] 60 mg PO DAILY 09/05/13 [Last Taken Unknown ] Simvastatin 20 mg PO HS 09/05/13 [Last Taken Unknown] amLODIPine BESYLATE [Norvasc] 5 mg PO DAILY 09/05/13 [Last Taken Unknown] metFORMIN HCL [Metformin HCl ER] 500 mg PO QAM 10/25/16 [Last Taken Unknown] traMADol HCL [Ultram] 50 mg PO QID PRN #20 tablet 10/25/16 [Last Taken Unknown] Hydrocodone/Chlorpheniramine [Vituz Solution] 5 ml PO BID 10/29/16 [Last Taken Unknown] Aspirin 325 mg PO BID 11/07/16 [Last Taken Unknown] Beta-Carotene(A) W-C , E/Min [Ocuvite] 1 tab PO DAILY 11/07/16 [Last Taken Unknown] Bisacodyl [Dulcolax Suppository] 10 mg RC DAILY PRN 11/07/16 [Last Taken Unknown ] Levothyroxine Sodium [Synthroid] 50 mcg PO Q48H 11/07/16 [Last Taken 11/06/16] Omeprazole 20 mg PO DAILY 11/07/16 [Last Taken Unknown] predniSONE [Prednisone] 5 mg PO DAILY 11/07/16 [Last Taken Unknown] tiZANidine HCL [Zanaflex] 2 mg PO HS 11/07/16 [Last Taken Unknown] Morphine Sulfate [Ms Contin] 15 mg PO Q12H #30 tablet. 11/09/16 [Last Taken Unknown] Morphine Sulfate [Ms Contin] 15 mg PO Q12H #30 tablet. 11/09/16 [Last Taken Unknown] Sucralfate [Carafate Suspension] 1 g PO ACHS #120 [facility] [place] 11/09/16 [Last Taken Unknown] Narrative: Pt. comes in with c/o back pain and chronic compression fracture to T7 or T8 as there a\re conflicting reports and occasional tingling and spasms in B hands and R leg. Pt. states that pain is 8-9/10 and is relieved some with morphine but not much. Pt. states taht movement and lying on her back exacerbates the pain. Review of Systems - Review of Systems Constitutional: Present: no symptoms reported. Absent: recent illness, fever, chills, weakness, fatigue, malaise EYE: Present: no symptoms reported ENT: Present: no symptoms reported Respiratory: Present: no symptoms reported. Absent: shortness of breath, cough , wheezing Cardiology: Present: no symptoms reported. Absent: chest pain, palpitations, edema Gastrointestinal/Abdominal: Present: no symptoms reported. Absent: nausea, vomiting, diarrhea, abdominal pain Genitourinary: Present: no symptoms reported Musculoskeletal: Present: back pain. Absent: neck pain, joint pain Skin: Present: no symptoms reported. Absent: rash, change in color Neurological: Present: no symptoms reported. Absent: headache, dizziness/light- headedness, numbness, tingling All Other Systems: All systems neg except as marked - Patient's Past Medical History Patient History - Medical: Arthritis, Cataracts, Diabetes Type 2, UTI'S Patient History - Cardiac/Respiratory: Hypertension, Hyperlipidemia Patient History - Cancer: No Hx of Cancer Patient History - Surgical Procedures: Total Hip Replacement, T & A Patient History - Other: None - Family History Mother Family History - Medical: , Dementia Family History - Cardiac/Respiratory: No pertinent hx Father Family History - Medical: Family History - Cardiac/Respiratory: COPD Family History - Cancer: No pertinent family hx - Social History Living Situations: assisted living Abuse History: No History of abuse Psych History: No pertinent hx Alcohol Use: none Drug Use: none - Immunizations Immunizations Up to Date: Yes Hx Pneumococcal Vaccination: Yes History of Influenza Vaccine: Yes Physical Exam - Physical Exam General Appearance: Present: wd/wn, alert, no apparent distress Eye Exam: Normal inspection: bilateral, PERRL: bilateral, EOMI: bilateral Ears, Nose, Throat: Present: normal ENT inspection, normal pharynx Neck: Present: normal inspection, nontender. Absent: lymphadenopathy (R), lymphadenopathy (L) Respiratory: Present: no respiratory distress, normal breath sounds, no accessory muscle use, chest nontender, lungs clear Cardiovascular/Chest: Present: regular rate, rhythm, no murmur, normal peripheral pulses Gastrointestinal/Abdominal: Present: normal bowel sounds, nontender, nondistended, soft, no organomegaly Back Exam: Present: vertebral tenderness - T, decreased range of motion, muscle spasm - R paraspinous. Absent: CVA tenderness (R), CVA tenderness (L) Extremity Exam: Present: normal inspection, non-tender, normal range of motion, no edema Neurological Exam: Present: alert, oriented, normal mood/affect, no motor/ sensory deficits, other - no sendory defect to any sensation in hands or feet Skin Exam: Present: normal color, warm/dry. Absent: pallor, skin rash ED Progress - Date and Time Seen: Date and Time: 11/11/16 10:21 As pt. states that pain is worsening, symptoms are unbearable, there are conflicting xray reports, and she is unable to tolerate pain further or MRI feel that CT scan is most appropriate imaging at this time. 11/11/16 12:[address] chavez and Dr Luis and they agree that pt. should be transferred and that it is probably ok to send pt. off of back board per pt. comfort and to prevent pressure ulcers as pt. has been potentially with this fracture for a while without complication. - Vital Signs Patient's Vital Signs:: I have reviewed the patient's vital signs. Vital Signs: Vital Signs 11/11/16 11/11/16 08:58 09:32 Temperature 36.6 C Pulse Rate 84 89 Respiratory 14 12 Rate Blood Pressure 153/56 147/46 O2 Sat by Pulse 91 96 Oximetry - CT/Ultrasound CT/Ultrasound Narrative: CT with retropulsion of anterior vertebral body fracture and post process and pars fx of T7 potentially unstable - Progress/Reassessment Chief Complaint: Back Pain Departure Clinical Impression: Compression fracture of thoracic vertebra Qualifiers: Encounter type: sequela Qualified Code(s): S22.000S - Wedge compression fracture of unspecified thoracic vertebra, sequela - Departure Disposition: Other home health Condition: Serious
[2016-11-11] MEDS ORDERED: HYDROmorphone HCL 1 MG/ML DISP.SYRIN ONE (10:27)
--- OUTSIDE RECORDS SUMMARY | 2016-11-11 10:40 | XMS REPORT | Continuity of Care Document ---
:1930 Author Organization [facility] ([facility]) Address [address] [place] [address] Phone [phone] Care Team Providers Name Role Phone Anisa Shola Primary Care Provider [phone] Source Comments This disclosure is being made pursuant to the Care Everywhere program, applicable federal and state laws, and may not contain all informaitonavailable regarding this patient.[facility] ([facility]) Active Allergies and Adverse Reactions Allergen [...] 01/13/2007 Phaco 07/02/2010 20/50 +2 277 Avastin #[id number] 20/200 ecc 322 08/06/2010 20/40 -1 269 Avastin #[id number] cf 4' 09/17/2010 20/35 +2 262 Avastin #[id number] CF 4 11/12/201030-2+3 267 Avastin #[id number] 20/500 01/07/2011 2030 -2 267 Avastin 03/18/2011 20/40 +2 262 Avastin #[id number] 20/150 ec +1 05/28/2011 2040 -1 244 Avastin #[id number] 20/250 204 08/22/2011 20/25 264 Avastin #[id number] 20/400 11/06/2011 20/25 +3 262 Avastin #[id number] 20/800 290 01/16/12 20/32 Avastin [id number] 5/600 04/23/2012 20/25 avastin [id number] 20/500 07/23/2012 20/25+2 254 [id number] 20/500ecc 293 10/22/2012 20/20 -2 no injection [...] Taken Blood Pressure 125/70 08/29/2016 10:07 AM PROJECT ESTIMATOR Pulse 74 08/29/2016 10:07 AM PROJECT ESTIMATOR Temperature - - Respiratory Rate - - Height 1.676 m (5' 5.98") 08/29/2016 10:07 AM PROJECT ESTIMATOR Weight 71.668 kg (158 lb) 08/29/2016 10:07 AM PROJECT ESTIMATOR Body Mass Index 25.51 08/29/2016 10:07 AM PROJECT ESTIMATOR Oxygen Saturation - - Plan of Care Date Type Specialty Providers Description 12/04/2016 Appointment Ophthalmology - Default, Other Chief Comp: Patient Specialty Billg - Defo Reported Reason For [address] [place] [address] [phone] (Fax) 12/10/2016 Appointment Heart and Vascular Estelle Dacosta MD Chief Comp: Patient [address] [place] [address] Visit [phone] (Fax) 03/04/2017 Appointment Ophthalmology - Brittney Dang MD Chief Comp: Patient Specialty [address] [place] [address] Visit [phone] (Fax) Health Maintenance Due Date Last Done [...]
[2016-11-11 10:43] LABS: Hematocrit 33.3 % (37.0-47.0); Hemoglobin 11.1 gm/dL (12.5-16.0); Mean Cell Volume 80.8 fl (78-100); Mean Corpuscular Hemoglobin 26.9 pg (27-31); Mean Corpuscular Hgb Conc 33.3 g/dl (32-36); Mean Platelet Volume 8.8 fl (6.0-9.5); Platelet Count 461 K/mm3 (150-450); Red Blood Count 4.12 M/mm3 (4.2-5.4); White Blood Count 14.1 K/mm3 (4.0-10.5)
[2016-11-11 10:51] LABS: Total Cells Counted 100
[2016-11-11 10:54] LABS: Albumin * 2.9 gm/dl (3.4-5.0); Anion Gap 7.8 mmol/L (6.8-13.8); BUN/Creatinine Ratio 21.5 (9.0-21.6); Bilirubin, Total 0.8 mg/dL (0.0-1.1); CRP 2.9 mg/dL (0.0-0.9); Ca. Corrected For Albumin 8.7 mg/dL (8.4-10.2); Calcium * 8.1 mg/dL (7.9-10.9); Carbon Dioxide 36.8 mmol/L (24-32.6); Potassium 2.6 mmol/L (3.4-4.6); Total Protein 6.7 gm/dL (6.2-8.2)
[2016-11-11 11:21] LABS: Band 2 % (0-2.0); Eosinophil 1 % (0-3); Lymphocyte 13 % (20-51); Monocyte 5 % (0-9); Neutrophil 79 % (42-75); Neutrophil # 11.1 K/mm3 (1.3-6.0); Platelet Estimate Increased (NORMAL)
[2016-11-11 11:22] LABS: RBC Morphology Normal (NORMAL)
[2016-11-11] MEDS ORDERED: NORMAL SALINE 1,000 ML IV ONE (11:24)
[2016-11-11] MEDS: POTASSIUM CHLORIDE 100 ML IV SCH ×2 (12:29→13:33)
[2016-11-11 13:56] LABS: Urine Bilirubin Negative (NEGATIVE); Urine Blood Negative /ul (NEGATIVE); Urine Ketone Negative (NEGATIVE); Urine Nitrite Negative (NEGATIVE); Urine Protein Negative (NEGATIVE); Urine Urobilinogen Normal (NORMAL)
[2016-11-11 14:08] LABS: Urine Appearance Clear; Urine Bacteria None Seen; Urine Color Yellow; Urine RBC None Seen /hpf (0-5); Urine WBC None Seen /hpf (0-5)
[2016-11-11 15:22] VITALS: BP 136/65
== END 2016-11-11 16:25 | disposition short-term general hospital (02) ==
LOC: ER 08:57
PROC: 0T9B70Z Drainage of Bladder with Drainage Device, Via Natural or Artificial Opening (ICD-10-PCS; principal; 2016-11-11)
DX: S22.000S Wedge compression fracture of unspecified thoracic vertebra, sequela (principal); M19.90 Unspecified osteoarthritis, unspecified site; E11.9 Type 2 diabetes mellitus without complications; I10 Essential (primary) hypertension; E78.5 Hyperlipidemia, unspecified

== ENCOUNTER 2020-08-16 15:42 | Inpatient (IN) ==
--- NOTE | 2020-08-16 16:14 | ERNOTE ---
Dyspnea - Date Date of Service: 08/16/20 - General Presenting Symptoms: shortness of breath Time Seen by Provider: 08/16/20 15:45 Source: patient Exam Limitations: no limitations - Immun/Allergies/Home Medications Immunizations: IMMUNIZATION HX Immunizations Up to Date Yes History of Influenza Vaccine Yes Hx Pneumococcal Vaccination Yes Allergies/Adverse Reactions: Allergies No Known Allergies Allergy (Verified 08/10/20 09:39) Home Medications: HOME MEDICATIONS compressor, for nebulizer See Dose Instructions .ROUTE .MEDSUPPLY #1 ea 02/05/18 [Last Taken Unknown] nebulizer accessories See Dose Instructions .ROUTE .MEDSUPPLY #1 ea 02/05/18 [Last Taken Unknown] bisacodyl 10 mg rectal suppository 10 mg IN DAILY PRN #0.1 ea 03/22/19 [Last Taken Unknown] magnesium hydroxide 400 mg/5 mL oral suspension 30 ml PO DAILY PRN #0.1 ml 03/22/19 [Last Taken Unknown] polyethylene glycol 3350 17 gram/dose oral powder 17 g PO DAILY PRN #0.1 g 03/22/19 [Last Taken Unknown] acetaminophen 500 mg tablet 1,000 mg PO Q6H PRN tab 11/25/19 [Last Taken Unknown] bismuth subsalicylate 262 mg/15 mL oral suspension 524 mg PO Q6H PRN ml 11/25/19 [Last Taken Unknown] fluticasone furoate 100 mcg-vilanterol 25 mcg/dose inhalation powder 1 inh IH DAILY 11/25/19 [Last Taken Unknown] Ascorbic Acid [Vitamin C] 500 mg PO DAILY 12/22/19 [Last Taken Unknown] albuterol sulfate 90 mcg/actuation aerosol inhaler See Rx Instructions .ROUTE .COMPLEX #18 unknown measurement unit code: gram 01/17/20 [Last Taken Unknown] amoxicillin 500 mg capsule 2,000 mg PO .COMPLEX PRN cap 01/17/20 [Last Taken Unknown] calcium carb-vit D3-minerals 600 mg calcium-400 unit tablet 1 tab PO BID 01/17/20 [Last Taken Unknown] hydrochlorothiazide 12.5 mg capsule 12.5 mg PO DAILY #30 cap 01/17/20 [Last Taken Unknown] potassium chloride 10 mEq capsule,extended release 10 meq PO DAILY #30 cap 04/12/20 [Last Taken Unknown] aspirin 325 mg tablet 325 mg PO DAILY #28 tab 04/13/20 [Last Taken Unknown] amlodipine 5 mg tablet 5 mg PO DAILY #30 tab 05/05/20 [Last Taken Unknown] ferrous sulfate 325 mg (65 mg iron) tablet 325 mg PO DAILY #30 tab 05/05/20 [Last Taken Unknown] metoprolol tartrate 25 mg tablet 25 mg PO BID #60 tab 05/05/20 [Last Taken Unknown] mirtazapine 30 mg tablet 30 mg PO HS #30 tab 05/05/20 [Last Taken Unknown] escitalopram oxalate 10 mg tablet 10 mg PO DAILY #30 tab 05/08/20 [Last Taken Unknown] gabapentin 100 mg capsule 100 mg PO HS #30 cap 05/08/20 [Last Taken Unknown] isosorbide mononitrate 30 mg tablet,extended release 24 hr 30 mg PO DAILY #30 tab 05/08/20 [Last Taken Unknown] levothyroxine 88 mcg tablet 88 mcg PO DAILY #30 tab 05/08/20 [Last Taken Unknown] hydralazine 25 mg tablet 25 mg PO TID #90 tab 06/07/20 [Last Taken Unknown] vitamins A,C,X-vvja-ryabpq 7,160 unit-113 mg-100 unit tablet 1 tab PO BID #60 tab 06/07/20 [Last Taken Unknown] Manual wheelchair See Rx Instructions .ROUTE .MEDSUPPLY #1 ea 06/30/20 [Last Taken Unknown] melatonin 3 mg capsule 3 mg PO HS #30 cap 07/19/20 [Last Taken Unknown] - Pain Score Pain Score #1 Pain Score: 0 - History of Present Illness Narrative: The patient is a 89 year old female who presents via POV for dyspnea which has been present for 2 days. There are associated symptoms of fatigue and decreased appetite. The patient denies pain. There are no alleviating factors. There are aggravating factors of lying flat. Previous treatments have included: none. The past medical history includes: AFib, DM, HTN, HLD, hypothyroid, CVA, emphysema and depression. The social history is negative. The patient has had no known ill contacts. Patient states she has been having blood pressure alterations with elevation and medication changes then low results so medications were again change. Patient states she received the COVID vaccine last week. Patient had COVID testing on Friday which was sent to [facility] from [place] and they have not received results yet. Review of Systems - Review of Systems Constitutional: Present: fatigue. Absent: recent illness, fever, chills EYE: Present: no symptoms reported ENT: Present: no symptoms reported. Absent: ear pain, nasal drainage, sore throat Respiratory: Present: shortness of breath. Absent: cough Cardiology: Absent: chest pain Gastrointestinal/Abdominal: Present: no symptoms reported. Absent: nausea, vomiting, diarrhea, abdominal pain, eating less, drinking less Genitourinary: Present: no symptoms reported. Absent: decreased urinary output Musculoskeletal: Present: no symptoms reported Skin: Present: no symptoms reported. Absent: rash Neurological: Present: no symptoms reported. Absent: dizziness/light-headedness All Other Systems: All systems neg except as marked Medical History (Last Reviewed 08/16/20 @ 16:05 by PATTI Allen) Emphysema of lung (Chronic) Anorexia (Chronic) Major depression, chronic (Chronic) Spinal stenosis (Chronic) Onset Date: ~02/21/12 Rotator cuff arthropathy (Chronic) Onset Date: ~12/01/17 Insomnia (Chronic) Hypothyroid (Chronic) Hypokalemia (Chronic) Hypertension (Chronic) Hyperlipidemia (Chronic) Diabetes mellitus (Chronic) Atrial fibrillation (Chronic) Abdominal pain Colonoscopy refused Compression fracture Onset Date: ~10/25/16 T7- T8 History of CVA (cerebrovascular accident) Onset Date: 12/22/19 Lt sided weakness Shoulder pain Weakness Surgical History: Surgical History (Last Reviewed 08/16/20 @ 16:05 by PATTI Allen) Deviated nasal septum History of hip replacement 09/10/2016-Right hip-[facility] History of tonsillectomy Hx of cataract surgery Family History: Family History (Last Reviewed 08/16/20 @ 16:05 by PATTI Allen) Daughter Alive and well Son Alive and well Brother Alive and well Father Emphysema lung Mother No problems noted. Sister No problems noted. Social History: (Last Reviewed 08/16/20 @ 16:05 by PATTI Allen) Social History: household members: none Highest level of school completed/degree received: high school graduate Service: No Tobacco: Smoking Status: Never smoker Alcohol: alcohol intake: never Substance Use: substance use type: does not use Dietary Habits: caffeine: Yes Physical Exam - Physical Exam General Appearance: Present: wd/wn, alert, moderate distress Head Exam: Present: normal inspection, no evidence of injury Eye Exam: Normal inspection: bilateral Neck: Present: normal inspection Respiratory: Present: no respiratory distress, accessory muscle use, decreased breath sounds - L>R base Cardiovascular/Chest: Present: tachycardia, irregularly irregular Gastrointestinal/Abdominal: Present: normal bowel sounds, nontender, nondistended, soft, no organomegaly Extremity Exam: Present: no edema Neurological Exam: Present: alert, oriented, normal mood/affect, no motor/sensory deficits Skin Exam: Present: normal color, warm/dry Progress - Date and Time Seen: Date and Time: 08/16/20 18:24 Review of results and imaging discussed with , proceed with tho racentesis via radiology. Discussed with radiology staff and on-call tomorrow, will add on to scheduled. Case and plan of care was reviewed with , will add labs for pleural fluid on admission. Will administer Lasix to aid with fluid retention. Discussed plan of care with patient and she verbalized understanding. Awaiting COVID testing for admission. - Results and Orders Patient's Lab Results:: I have reviewed the patient's lab results. - Vital Signs Patient's Vital Signs:: I have reviewed the patient's vital signs. - EKG EKG #1 EKG: atrial fibrillation - rate 116, nonspecific ST T wave changes EKG read: Reviewed by me EKG Comments: No acute ST elevation or ischemic changes EKG #2 EKG: NSR, other - no ectopy, no ST elevation EKG read: Reviewed by me - X-Ray X-Ray #1 X-Ray: chest Interpretation: Reviewed by me X-ray Comments: IMPRESSION: 1. LARGE LEFT PLEURAL EFFUSION WITH ASSOCIATED COMPRESSIVE ATELECTASIS OF THE LEFT LUNG. 2. ADDITIONAL CHRONIC FINDINGS ABOVE. Electronically signed by Neel Trinh D.O.. Departure Clinical Impression: Pleural effusion CHF (congestive heart failure) Qualifiers: Heart failure type: unspecified Heart failure chronicity: acute Qualified Code(s): I50.9 - Heart failure, unspecified - Departure Disposition: Still a patient Condition: Fair
[2020-08-16 16:19] LABS: Hematocrit 37.1 % (37.0-47.0); Hemoglobin 11.3 gm/dL (12.5-16.0); Mean Cell Volume 88.5 fl (78-100); Mean Corpuscular Hgb Conc 30.5 g/dl (32-36); Mean Platelet Volume 8.6 fl (8-12.5); Neutrophil # 8.9 K/mm3 (1.3-6.0); Platelet Count 406 K/mm3 (150-450); Red Blood Count 4.19 M/mm3 (4.2-5.4); Red Cell Distribution Width 15.6 % (11.5-14.0); White Blood Count 11.4 K/mm3 (4.0-10.5)
[2020-08-16 16:31] LABS: INR 1.22 INR (0.92-1.08); Partial Thrombolplastin Time 27.3 Seconds (24-32)
[2020-08-16 16:37] LABS: ALT 25 U/L (19-67); AST 30 U/L (0-48); Albumin * 2.9 gm/dl (3.4-5.0); Alkaline Phosphatase * 136 U/L (50-170); Anion Gap 14.7 mmol/L (6.8-13.8); BNP * 20513 pg/mL (5-550); BUN/Creatinine Ratio 25.2 (9.0-21.6); Bilirubin, Total 0.4 mg/dL (0.0-1.1); Blood Urea Nitrogen 37 mg/dL (3-23); Ca. Corrected For Albumin 9.1 mg/dL (8.4-10.2); Calcium * 8.5 mg/dL (7.9-10.9); Carbon Dioxide 24.2 mmol/L (24-32.6); Chloride 102 mmol/L (97-106); Glucose * 137 mg/dL (70-110); Magnesium 2.4 mg/dL (1.2-2.8); Potassium 4.9 mmol/L (3.4-4.6); Sodium 136 mmol/L (132-142); Total Protein 7.7 gm/dL (6.2-8.2); Troponin I Less than 0.017 ng/mL (0.00-0.10)
[2020-08-16] MEDS ORDERED: FUROSEMIDE 10 MG/ML VIAL IV ONE (16:55)
--- NOTE | 2020-08-16 17:40 | HP ---
Chief Complaint - Chief Complaint Date of Service: 08/16/20 Time of Service: 17:05 Chief Complaint: Shortness of breath x2 days History of Present Illness: 89-year-old female with a past medical history of atrial fibrillation, diabetes mellitus, CVA, hypertension, hyperlipidemia, hypothyroidism, depression presents from [facility] with complaints of shortness of breath for the past 2 days. She was found to be hypoxic with oxygen saturation of 86% on room air. She developed A. fib but spontaneously converted while in the ER. Blood work shows a white count of 11.4, hemoglobin 11.3, BNP of 20,513, GFR of 36, her baseline is 38-51. Chest x-ray shows a significant pleural effusion. She was given 1 dose of Lasix in the ER. She will need to be admitted for further management and evaluation of her hypoxia and left pleural effusion. Medical History (Last Reviewed 08/16/20 @ 16:05 by PATTI Allen) Emphysema of lung (Chronic) Anorexia (Chronic) Major depression, chronic (Chronic) Spinal stenosis (Chronic) Onset Date: ~02/21/12 Rotator cuff arthropathy (Chronic) Onset Date: ~12/01/17 Insomnia (Chronic) Hypothyroid (Chronic) Hypokalemia (Chronic) Hypertension (Chronic) Hyperlipidemia (Chronic) Diabetes mellitus (Chronic) Atrial fibrillation (Chronic) Abdominal pain Colonoscopy refused Compression fracture Onset Date: ~10/25/16 T7- T8 History of CVA (cerebrovascular accident) Onset Date: 12/22/19 Lt sided weakness Shoulder pain Weakness Surgical History: Surgical History (Last Reviewed 08/16/20 @ 16:05 by PATTI Allen) Deviated nasal septum History of hip replacement 09/10/2016-Right hip-[facility] History of tonsillectomy Hx of cataract surgery Family History: Family History (Last Reviewed 08/16/20 @ 16:05 by PATTI Allen) Daughter Alive and well Son Alive and well Brother Alive and well Father Emphysema lung Mother No problems noted. Sister No problems noted. Social History: (Last Reviewed 08/16/20 @ 16:05 by PATTI Allen) Social History: household members: none Highest level of school completed/degree received: high school graduate Service: No Tobacco: Smoking Status: Never smoker Alcohol: alcohol intake: never Substance Use: substance use type: does not use Dietary Habits: caffeine: Yes Review Of Systems (GEN) - Review of Systems Generalized/Overall Review: Absent: Fever Respiratory: Present: Shortness of Breath Cardiac: Absent: Chest Pain Abdominal: Absent: Abdominal Pain Misc: All systems neg except as marked Immunizations: IMMUNIZATION HX Immunizations Up to Date Yes History of Influenza Vaccine Yes Hx Pneumococcal Vaccination Yes Allergies/Adverse Reactions: Allergies Allergy/AdvReac Type Severity Reaction Status Date / Time No Known Allergies Allergy Verified 08/10/20 09:39 Home Medications: HOME MEDICATIONS compressor, for nebulizer See Dose Instructions .ROUTE .MEDSUPPLY #1 ea 02/05/18 [Last Taken Unknown] nebulizer accessories See Dose Instructions .ROUTE .MEDSUPPLY #1 ea 02/05/18 [Last Taken Unknown] bisacodyl 10 mg rectal suppository 10 mg GA DAILY PRN #0.1 ea 03/22/19 [Last Taken Unknown] magnesium hydroxide 400 mg/5 mL oral suspension 30 ml PO DAILY PRN #0.1 ml 03/22/19 [Last Taken Unknown] polyethylene glycol 3350 17 gram/dose oral powder 17 g PO DAILY PRN #0.1 g 03/22/19 [Last Taken Unknown] acetaminophen 500 mg tablet 1,000 mg PO Q6H PRN tab 11/25/19 [Last Taken Unknown] bismuth subsalicylate 262 mg/15 mL oral suspension 524 mg PO Q6H PRN ml 11/25/19 [Last Taken Unknown] fluticasone furoate 100 mcg-vilanterol 25 mcg/dose inhalation powder 1 inh IH DAILY 11/25/19 [Last Taken Unknown] Ascorbic Acid [Vitamin C] 500 mg PO DAILY 12/22/19 [Last Taken Unknown] albuterol sulfate 90 mcg/actuation aerosol inhaler See Rx Instructions .ROUTE . COMPLEX #18 unknown measurement unit code: gram 01/17/20 [Last Taken Unknown] amoxicillin 500 mg capsule 2,000 mg PO .COMPLEX PRN cap 01/17/20 [Last Taken Unknown] calcium carb-vit D3-minerals 600 mg calcium-400 unit tablet 1 tab PO BID 01/17/20 [Last Taken Unknown] hydrochlorothiazide 12.5 mg capsule 12.5 mg PO DAILY #30 cap 01/17/20 [Last Taken Unknown] potassium chloride 10 mEq capsule,extended release 10 meq PO DAILY #30 cap 04/12/20 [Last Taken Unknown] aspirin 325 mg tablet 325 mg PO DAILY #28 tab 04/13/20 [Last Taken Unknown] amlodipine 5 mg tablet 5 mg PO DAILY #30 tab 05/05/20 [Last Taken Unknown] ferrous sulfate 325 mg (65 mg iron) tablet 325 mg PO DAILY #30 tab 05/05/20 [Last Taken Unknown] metoprolol tartrate 25 mg tablet 25 mg PO BID #60 tab 05/05/20 [Last Taken Unknown] mirtazapine 30 mg tablet 30 mg PO HS #30 tab 05/05/20 [Last Taken Unknown] escitalopram oxalate 10 mg tablet 10 mg PO DAILY #30 tab 05/08/20 [Last Taken Unknown] gabapentin 100 mg capsule 100 mg PO HS #30 cap 05/08/20 [Last Taken Unknown] isosorbide mononitrate 30 mg tablet,extended release 24 hr 30 mg PO DAILY #30 tab 05/08/20 [Last Taken Unknown] levothyroxine 88 mcg tablet 88 mcg PO DAILY #30 tab 05/08/20 [Last Taken Unknown] hydralazine 25 mg tablet 25 mg PO TID #90 tab 06/07/20 [Last Taken Unknown] vitamins A,C,W-xhvp-dyjuyf 7,160 unit-113 mg-100 unit tablet 1 tab PO BID #60 tab 06/07/20 [Last Taken Unknown] Manual wheelchair See Rx Instructions .ROUTE .MEDSUPPLY #1 ea 06/30/20 [Last Taken Unknown] melatonin 3 mg capsule 3 mg PO HS #30 cap 07/19/20 [Last Taken Unknown] Exam - Exam Vital Signs: Vital Signs - Last Taken Temp 36.9 C 08/16/20 15:43 Pulse 69 08/16/20 17:00 Resp 21 H 08/16/20 17:00 BP 148/64 08/16/20 17:00 Pulse Ox 93 08/16/20 17:00 Constitutional: Present: Alert, Cooperative, Well developed, Well nourished, No distress, Elderly ENT Exam: Present: hearing grossly normal, moist mucous membranes Eye Exam: bilateral eye: normal inspection, PERRL, EOMI Neck: Present: non-tender, supple. Absent: lymphadenopathy (R), lymphadenopathy (L) Back Exam: Present: normal inspection, no CVA tenderness, no vertebral tenderness Respiratory: Present: no respiratory distress, no accessory muscle use, decreased breath sounds - Left lower lung field, wheezing, No wheezing. Absent: crackles, rhonchi Cardiovascular/Chest: Present: normal peripheral pulses, regular rate, rhythm, no edema, no murmur Peripheral Pulses: dorsalis-pedis (R): 1+, dorsalis-pedis (L): 1+ Abdomen: Present: Normal bowel sounds, soft, nontender Extremity: Present: no pedal edema Skin Exam: Present: normal color, warm/dry Neurologic: Present: alert, normal mood/affect Appearance: Present: appropriate appearance, appropriate insight Eye contact: Present: cooperative Thoughts: Present: normal mood /affect Diagnostic Studies: Abnormal Lab Results 08/16/20 08/16/20 08/16/20 Range/Units 16:05 16:05 16:05 WBC 11.4 H (4.0-10.5) K/mm3 RBC 4.19 L (4.2-5.4) M/mm3 Hgb 11.3 L (12.5-16.0) gm/dL MCHC 30.5 L (32-36) g/dl RDW 15.6 H (11.5-14.0) % Immature Gran % (Auto) 0.50 H (0.001-0.429) % Immature Gran # (Auto) 0.06 H (0.000-0.0310) K/mm3 Neutrophils % 78.0 H (42-75.0) % Lymphocytes % 11.6 L (20-51) % Neutrophils # 8.9 H (1.3-6.0) K/mm3 Lymphocytes # 1.32 L (1.5-3.5) k/mm3 PT 12.0 H (9.1-10.7) Seconds INR (Anticoag Therapy) 1.22 H (0.92-1.08) INR Potassium 4.9 H D (3.4-4.6) mmol/L Anion Gap 14.7 H (6.8-13.8) mmol/L BUN 37 H (3-23) mg/dL Creatinine 1.47 H (0.4-1.4) mg/dL Est GFR (Non-Af Amer) 36 L (60-130) mL/min BUN/Creatinine Ratio 25.2 H (9.0-21.6) Random Glucose 137 H (70-110) mg/dL B-Natriuretic Peptide 35813 H (5-550) pg/mL Albumin 2.9 L (3.4-5.0) gm/dl Laboratory Results WBC 11.4 K/mm3 (4.0-10.5) H 08/16/20 16:05 RBC 4.19 M/mm3 (4.2-5.4) L 08/16/20 16:05 Hgb 11.3 gm/dL (12.5-16.0) L 08/16/20 16:05 Hct 37.1 % (37.0-47.0) 08/16/20 16:05 MCV 88.5 fl (78-100) 08/16/20 16:05 MCH 27.0 pg (27-31) 08/16/20 16:05 MCHC 30.5 g/dl (32-36) L 08/16/20 16:05 RDW 15.6 % (11.5-14.0) H 08/16/20 16:05 Plt Count 406 K/mm3 (150-450) 08/16/20 16:05 MPV 8.6 fl (8-12.5) 08/16/20 16:05 Immature Gran % (Auto) 0.50 % (0.001-0.429) H 08/16/20 16:05 Immature Gran # (Auto) 0.06 K/mm3 (0.000-0.0310) H 08/16/20 16:05 Neutrophils % 78.0 % (42-75.0) H 08/16/20 16:05 Lymphocytes % 11.6 % (20-51) L 08/16/20 16:05 Monocytes % 7.7 % (0.0-9) 08/16/20 16:05 Eosinophils % 1.8 % (0.0-3.0) 08/16/20 16:05 Basophils % 0.4 % (0.0-1.0) 08/16/20 16:05 Nucleated RBC % 0.0 k/mm3 (0-1) 08/16/20 16:05 Neutrophils # 8.9 K/mm3 (1.3-6.0) H 08/16/20 16:05 Lymphocytes # 1.32 k/mm3 (1.5-3.5) L 08/16/20 16:05 Monocytes # 0.9 k/mm3 (0.0-1.0) 08/16/20 16:05 Eosinophils # 0.2 k/mm3 (0.0-0.7) 08/16/20 16:05 Absolute Basophils 0.1 k/mm3 (0.0-0.1) 08/16/20 16:05 PT 12.0 Seconds (9.1-10.7) H 08/16/20 16:05 INR (Anticoag Therapy) 1.22 INR (0.92-1.08) H 08/16/20 16:05 PTT (Ron) 27.3 Seconds (24-32) 08/16/20 16:05 Sodium 136 mmol/L (132-142) 08/16/20 16:05 Plasma Sodium 137 mmol/L (130-142) 08/16/20 16:05 Potassium 4.9 mmol/L (3.4-4.6) H D 08/16/20 16:05 Chloride 102 mmol/L (97-106) 08/16/20 16:05 Carbon Dioxide 24.2 mmol/L (24-32.6) 08/16/20 16:05 Anion Gap 14.7 mmol/L (6.8-13.8) H 08/16/20 16:05 BUN 37 mg/dL (3-23) H 08/16/20 16:05 Creatinine 1.47 mg/dL (0.4-1.4) H 08/16/20 16:05 Est GFR (Non-Af Amer) 36 mL/min (60-130) L 08/16/20 16:05 BUN/Creatinine Ratio 25.2 (9.0-21.6) H 08/16/20 16:05 Random Glucose 137 mg/dL (70-110) H 08/16/20 16:05 Lactic Acid, Venous 1.3 mmol/L (0.4-2.0) 08/16/20 16:05 Calcium 8.5 mg/dL (7.9-10.9) 08/16/20 16:05 Calcium Adj for Albumin 9.1 mg/dL (8.4-10.2) 08/16/20 16:05 Magnesium 2.4 mg/dL (1.2-2.8) 08/16/20 16:05 Total Bilirubin 0.4 mg/dL (0.0-1.1) 08/16/20 16:05 AST 30 U/L (0-48) 08/16/20 16:05 ALT 25 U/L (19-67) 08/16/20 16:05 Alkaline Phosphatase 136 U/L (50-170) 08/16/20 16:05 Troponin I Less than 0.017 ng/mL (0.00-0.10) 08/16/20 16:05 B-Natriuretic Peptide 64835 pg/mL (5-550) H 08/16/20 16:05 Total Protein 7.7 gm/dL (6.2-8.2) 08/16/20 16:05 Albumin 2.9 gm/dl (3.4-5.0) L 08/16/20 16:05 Assessment/Plan - Narrative Narrative: 89-year-old female with a past medical history of atrial fibrillation, diabetes mellitus, CVA, hypertension, hyperlipidemia, hypothyroidism, depression presents from [facility] with complaints of shortness of breath for the past 2 days. She was found to be hypoxic with oxygen saturation of 86% on room air. She developed A. fib but spontaneously converted while in the ER. Blood work shows a white count of 11.4, hemoglobin 11.3, BNP of 20,513, GFR of 36, her baseline is 38-51. Chest x-ray shows a significant pleural effusion. She was given 1 dose of Lasix in the ER. She will need to be admitted for further management and evaluation of her hypoxia and left pleural effusion. Plan #1 plan for thoracentesis with radiology tomorrow #2 order pleural fluid analysis including cytology, cell count, cell differential, pH, protein, lactate dehydrogenase and glucose. #3 resume home medications for comorbidities #4 CBC and CMP in the morning - Assessment/Plan (1) Hypoxia Problem: Acute (2) Pleural effusion, left Problem: Acute (3) Unstable gait Problem: Chronic (4) Diabetes mellitus, type II Problem: Acute Qualifiers: (5) Major depression, chronic Problem: Chronic (6) Hypothyroid Problem: Chronic Qualifiers: (7) Hypertension Problem: Chronic Qualifiers: (8) Hyperlipidemia Problem: Chronic Qualifiers: (9) Atrial fibrillation Problem: Chronic
[2020-08-16 18:12] LABS: Urine Bilirubin Negative (NEGATIVE); Urine Blood Negative /ul (NEGATIVE); Urine Ketone Negative (NEGATIVE); Urine Nitrite Negative (NEGATIVE); Urine Protein 100 mg/dL (NEGATIVE); Urine Specific Gravity >=1.030 SP.GR. (1.005-1.010); Urine Urobilinogen Normal (NORMAL); Urine pH 5.5 pH (5.0-7.0)
[2020-08-16 18:31] LABS: Urine Appearance Clear (CLEAR); Urine Color Yellow
[2020-08-16 18:32] LABS: Urine Bacteria 2+; Urine RBC TRACE /hpf (0-5)
[2020-08-16 18:33] LABS: Urine Amorphous Sediment Few - 1+ (NONE-FEW)
[2020-08-17 06:20] LABS: Hematocrit 35.4 % (37.0-47.0); Hemoglobin 10.8 gm/dL (12.5-16.0); Mean Cell Volume 89.4 fl (78-100); Mean Corpuscular Hemoglobin 27.3 pg (27-31); Mean Corpuscular Hgb Conc 30.5 g/dl (32-36); Mean Platelet Volume 8.5 fl (8-12.5); Neutrophil # 6.2 K/mm3 (1.3-6.0); Neutrophil % 69.4 % (42-75.0); Platelet Count 375 K/mm3 (150-450); Red Blood Count 3.96 M/mm3 (4.2-5.4); Red Cell Distribution Width 15.6 % (11.5-14.0); White Blood Count 8.9 K/mm3 (4.0-10.5)
[2020-08-17 06:29] LABS: Prothrombin Time (Patient) 12.3 Seconds (9.1-10.7)
[2020-08-17 06:31] LABS: INR 1.25 INR (0.92-1.08); Partial Thrombolplastin Time 27.1 Seconds (24-32)
[2020-08-17 06:42] LABS: Albumin * 2.7 gm/dl (3.4-5.0); Anion Gap 9.6 mmol/L (6.8-13.8); BUN/Creatinine Ratio 25.5 (9.0-21.6); Bilirubin, Total 0.4 mg/dL (0.0-1.1); Ca. Corrected For Albumin 9.2 mg/dL (8.4-10.2); Calcium * 8.5 mg/dL (7.9-10.9); Carbon Dioxide 27.9 mmol/L (24-32.6); Potassium 4.5 mmol/L (3.4-4.6); Total Protein 7.3 gm/dL (6.2-8.2)
[2020-08-17] MEDS ORDERED: BISACODYL 10 MG SUPP.RECT RC PRN (08:15)
[2020-08-17] MEDS ORDERED: ACETAMINOPHEN 325 MG TABLET PO PRN (08:15)
[2020-08-17] MEDS ORDERED: SENNOSIDES/DOCUSATE SODIUM 1 TAB TABLET PO PRN (08:15)
[2020-08-17] MEDS ORDERED: ALBUTEROL SULFATE 2.5 MG/0.5 ML VIAL.NEB IH PRN (08:29)
[2020-08-17] MEDS: FLUTICASONE PROPION/SALMETEROL 14 PUFF DISK.W.DEV IH SCH ×2 (09:19→20:13)
[2020-08-17] MEDS: LEVOTHYROXINE SODIUM 88 MCG TABLET PO SCH (09:21)
[2020-08-17] MEDS: ESCITALOPRAM OXALATE 10 MG TAB PO SCH (09:22)
[2020-08-17] MEDS: hydrALAZINE HCL 25 MG TABLET PO SCH ×3 (09:22→16:56)
[2020-08-17] MEDS: POTASSIUM CHLORIDE 10 MEQ TABLET.SA PO SCH (09:23)
[2020-08-17] MEDS: FERROUS SULFATE 325 MG TABLET PO SCH (09:23)
[2020-08-17] MEDS: METOPROLOL TARTRATE 25 MG TABLET PO SCH ×2 (09:23→20:17)
[2020-08-17] MEDS: LISINOPRIL 5 MG TABLET PO SCH (09:24)
[2020-08-17] MEDS: ISOSORBIDE MONONITRATE 30 MG TAB.SR.24H PO SCH (09:24)
--- NOTE | 2020-08-17 09:42 | PN ---
Subjective - Date and Time Seen Date: 08/17/20 Time: 09:41 Subjective Narrative: She states she slept well. Her shortness of breath has improved with the oxygen supplementation. She denies any pain. Objective - Review of Systems Generalized/Overall Review: Denies: Fever Respiratory: Reports: Shortness of Breath Cardiac: Denies: Chest Pain Abdominal: Denies: Abdominal Pain Genitourinary Symptoms: Denies: Frequency, Dysuria Misc: All systems neg except as marked - Vitals Vitals: Last Vital Signs Temp 36.6 C 08/17/20 06:33 Pulse 74 08/17/20 09:24 Resp 16 08/17/20 06:33 BP 184/65 H 08/17/20 09:24 Pulse Ox 90 L 08/17/20 06:33 - Abnormal Lab Findings Abnormal Lab Findings: Abnormal Lab Results 08/16/20 08/16/20 08/16/20 Range/Units 16:05 16:05 16:05 WBC 11.4 H (4.0-10.5) K/mm3 RBC 4.19 L (4.2-5.4) M/mm3 Hgb 11.3 L (12.5-16.0) gm/dL Hct (37.0-47.0) % MCHC 30.5 L (32-36) g/dl RDW 15.6 H (11.5-14.0) % Immature Gran % (Auto) 0.50 H (0.001-0.429) % Immature Gran # (Auto) 0.06 H (0.000-0.0310) K/mm3 Neutrophils % 78.0 H (42-75.0) % Lymphocytes % 11.6 L (20-51) % Monocytes % (0.0-9) % Eosinophils % (0.0-3.0) % Neutrophils # 8.9 H (1.3-6.0) K/mm3 Lymphocytes # 1.32 L (1.5-3.5) k/mm3 PT 12.0 H (9.1-10.7) Seconds INR (Anticoag Therapy) 1.22 H (0.92-1.08) INR Potassium 4.9 H D (3.4-4.6) mmol/L Anion Gap 14.7 H (6.8-13.8) mmol/L BUN 37 H (3-23) mg/dL Creatinine 1.47 H (0.4-1.4) mg/dL Est GFR (Non-Af Amer) 36 L (60-130) mL/min BUN/Creatinine Ratio 25.2 H (9.0-21.6) Random Glucose 137 H (70-110) mg/dL B-Natriuretic Peptide 98256 H (5-550) pg/mL Albumin 2.9 L (3.4-5.0) gm/dl Urine Protein (NEGATIVE) mg/dL Ur Leukocyte Esterase (NEGATIVE) /ul Urine WBC (0-5) /hpf Urine Bacteria (NONE) 08/16/20 08/17/20 08/17/20 Range/Units 17:50 06:16 06:16 WBC (4.0-10.5) K/mm3 RBC 3.96 L (4.2-5.4) M/mm3 Hgb 10.8 L (12.5-16.0) gm/dL Hct 35.4 L (37.0-47.0) % MCHC 30.5 L (32-36) g/dl RDW 15.6 H (11.5-14.0) % Immature Gran % (Auto) 0.60 H (0.001-0.429) % Immature Gran # (Auto) 0.05 H (0.000-0.0310) K/mm3 Neutrophils % (42-75.0) % Lymphocytes % 15.5 L (20-51) % Monocytes % 9.8 H (0.0-9) % Eosinophils % 4.1 H (0.0-3.0) % Neutrophils # 6.2 H (1.3-6.0) K/mm3 Lymphocytes # 1.39 L (1.5-3.5) k/mm3 PT (9.1-10.7) Seconds INR (Anticoag Therapy) (0.92-1.08) INR Potassium (3.4-4.6) mmol/L Anion Gap (6.8-13.8) mmol/L BUN 38 H (3-23) mg/dL Creatinine 1.49 H (0.4-1.4) mg/dL Est GFR (Non-Af Amer) 35 L (60-130) mL/min BUN/Creatinine Ratio 25.5 H (9.0-21.6) Random Glucose (70-110) mg/dL B-Natriuretic Peptide (5-550) pg/mL Albumin 2.7 L (3.4-5.0) gm/dl Urine Protein 100 H (NEGATIVE) mg/dL Ur Leukocyte Esterase 25 H (NEGATIVE) /ul Urine WBC 10-25 H (0-5) /hpf Urine Bacteria 2+ H (NONE) 08/17/20 Range/Units 06:16 WBC (4.0-10.5) K/mm3 RBC (4.2-5.4) M/mm3 Hgb (12.5-16.0) gm/dL Hct (37.0-47.0) % MCHC (32-36) g/dl RDW (11.5-14.0) % Immature Gran % (Auto) (0.001-0.429) % Immature Gran # (Auto) (0.000-0.0310) K/mm3 Neutrophils % (42-75.0) % Lymphocytes % (20-51) % Monocytes % (0.0-9) % Eosinophils % (0.0-3.0) % Neutrophils # (1.3-6.0) K/mm3 Lymphocytes # (1.5-3.5) k/mm3 PT 12.3 H (9.1-10.7) Seconds INR (Anticoag Therapy) 1.25 H (0.92-1.08) INR Potassium (3.4-4.6) mmol/L Anion Gap (6.8-13.8) mmol/L BUN (3-23) mg/dL Creatinine (0.4-1.4) mg/dL Est GFR (Non-Af Amer) (60-130) mL/min BUN/Creatinine Ratio (9.0-21.6) Random Glucose (70-110) mg/dL B-Natriuretic Peptide (5-550) pg/mL Albumin (3.4-5.0) gm/dl Urine Protein (NEGATIVE) mg/dL Ur Leukocyte Esterase (NEGATIVE) /ul Urine WBC (0-5) /hpf Urine Bacteria (NONE) - Exam Constitutional: Present: Alert, Cooperative, Well developed, Well nourished, No distress ENT Exam: Present: hearing grossly normal Neck: Present: non-tender, supple. Absent: lymphadenopathy (R), lymphadenopathy (L) Respiratory: Present: decreased breath sounds - Left lower lung field, No wheezing. Absent: crackles, rhonchi Cardiovascular/Chest: Present: normal peripheral pulses, regular rate, rhythm, no murmur Abdomen: Present: Normal bowel sounds, soft, nontender Extremity: Present: no pedal edema Skin Exam: Present: normal color, warm/dry Neurologic: Present: alert, normal mood/affect Appearance: Present: appropriate appearance Thoughts: Present: normal thought pattern, normal mood /affect Assessment/Plan Plan Narrative: 89-year-old female with a past medical history of atrial fibrillation, diabetes mellitus, CVA, hypertension, hyperlipidemia, hypothyroidism, depression presents from [facility] with complaints of shortness of breath for the past 2 days. She was found to be hypoxic with oxygen saturation of 86% on room air. She developed A. fib but spontaneously converted while in the ER. Blood work shows a white count of 11.4, hemoglobin 11.3, BNP of 20,513, GFR of 36, her baseline is 38-51. Chest x-ray shows a significant pleural effusion. She was given 1 dose of Lasix in the ER. She will need to be admitted for further management and evaluation of her hypoxia and large left pleural effusion. She is scheduled to have a thoracentesis performed today in radiology. I will transition her to inpatient admission. Plan #1 plan for thoracentesis with radiology today #2 order pleural fluid analysis including cytology, cell count, cell differential, pH, protein, lactate dehydrogenase and glucose. #3 Continue home medications for comorbidities #4 CBC and CMP in the morning #5 VTE prophylaxis with SCDs due to the upcoming procedure today, I will not anticoagulate her #6 Taper to baseline oxygen as tolerated - Problems/Diagnosis (1) Hypoxia Problem: Acute (2) Pleural effusion, left Problem: Acute (3) Unstable gait Problem: Chronic (4) Diabetes mellitus, type II Problem: Acute Qualifiers: (5) Major depression, chronic Problem: Chronic (6) Hypothyroid Problem: Chronic Qualifiers: (7) Hypertension Problem: Chronic Qualifiers: (8) Hyperlipidemia Problem: Chronic Qualifiers: (9) Atrial fibrillation Problem: Chronic
[2020-08-17] MEDS: GABAPENTIN 100 MG CAPSULE PO SCH (20:18)
[2020-08-17] MEDS: MELATONIN 3,000 MCG TABLET PO SCH (20:18)
[2020-08-18 06:42] LABS: Hematocrit 34.2 % (37.0-47.0); Hemoglobin 10.4 gm/dL (12.5-16.0); Mean Cell Volume 90.2 fl (78-100); Mean Corpuscular Hemoglobin 27.4 pg (27-31); Mean Corpuscular Hgb Conc 30.4 g/dl (32-36); Mean Platelet Volume 8.6 fl (8-12.5); Neutrophil # 6.4 K/mm3 (1.3-6.0); Neutrophil % 70.1 % (42-75.0); Platelet Count 360 K/mm3 (150-450); Red Blood Count 3.79 M/mm3 (4.2-5.4); Red Cell Distribution Width 15.6 % (11.5-14.0); White Blood Count 9.1 K/mm3 (4.0-10.5)
[2020-08-18 06:52] LABS: Albumin * 2.5 gm/dl (3.4-5.0); Anion Gap 9.9 mmol/L (6.8-13.8); BUN/Creatinine Ratio 25.3 (9.0-21.6); Bilirubin, Total 0.4 mg/dL (0.0-1.1); Ca. Corrected For Albumin 9.1 mg/dL (8.4-10.2); Calcium * 8.2 mg/dL (7.9-10.9); Carbon Dioxide 29.8 mmol/L (24-32.6); Potassium 4.7 mmol/L (3.4-4.6); Total Protein 6.7 gm/dL (6.2-8.2)
[2020-08-18] MEDS: LEVOTHYROXINE SODIUM 88 MCG TABLET PO SCH (07:20)
[2020-08-18] MEDS: FLUTICASONE PROPION/SALMETEROL 14 PUFF DISK.W.DEV IH SCH ×2 (09:16→20:08)
[2020-08-18] MEDS: FERROUS SULFATE 325 MG TABLET PO SCH (09:17)
[2020-08-18] MEDS: POTASSIUM CHLORIDE 10 MEQ TABLET.SA PO SCH (09:17)
[2020-08-18] MEDS: hydrALAZINE HCL 25 MG TABLET PO SCH ×3 (09:20→17:22)
[2020-08-18] MEDS: ISOSORBIDE MONONITRATE 30 MG TAB.SR.24H PO SCH (09:21)
[2020-08-18] MEDS: ESCITALOPRAM OXALATE 10 MG TAB PO SCH (09:21)
[2020-08-18] MEDS: LISINOPRIL 5 MG TABLET PO SCH (09:22)
[2020-08-18] MEDS: METOPROLOL TARTRATE 25 MG TABLET PO SCH ×2 (09:22→20:11)
--- NOTE | 2020-08-18 12:40 | PN ---
Subjective - Date and Time Seen Date: 08/18/20 Time: 08:30 Subjective Narrative: She states she does feel better since having the thoracentesis. Decreased shortness of breath. She does continue to have some weakness. She is eating and drinking. She would like to go home. Objective - Review of Systems Generalized/Overall Review: Reports: Weakness. Denies: Fever Respiratory: Reports: Shortness of Breath. Denies: Cough Cardiac: Denies: Chest Pain Abdominal: Denies: Abdominal Pain Misc: All systems neg except as marked - Vitals Vitals: Last Vital Signs Temp 37.2 C 08/18/20 09:55 Pulse 112 H 08/18/20 09:55 Resp 18 08/18/20 09:55 BP 104/68 08/18/20 09:55 Pulse Ox 92 L 08/18/20 09:55 - Abnormal Lab Findings Abnormal Lab Findings: Abnormal Lab Results 08/18/20 08/18/20 Range/Units 06:31 06:31 RBC 3.79 L (4.2-5.4) M/mm3 Hgb 10.4 L (12.5-16.0) gm/dL Hct 34.2 L (37.0-47.0) % MCHC 30.4 L (32-36) g/dl RDW 15.6 H (11.5-14.0) % Immature Gran # (Auto) 0.04 H (0.000-0.0310) K/mm3 Lymphocytes % 15.5 L (20-51) % Monocytes % 9.8 H (0.0-9) % Eosinophils % 3.9 H (0.0-3.0) % Neutrophils # 6.4 H (1.3-6.0) K/mm3 Lymphocytes # 1.41 L (1.5-3.5) k/mm3 Potassium 4.7 H (3.4-4.6) mmol/L BUN 39 H (3-23) mg/dL Creatinine 1.54 H (0.4-1.4) mg/dL Est GFR (Non-Af Amer) 34 L (60-130) mL/min BUN/Creatinine Ratio 25.3 H (9.0-21.6) Albumin 2.5 L (3.4-5.0) gm/dl - Exam Constitutional: Present: Alert, Cooperative, Well developed, Well nourished, No distress, Elderly ENT Exam: Present: hearing grossly normal Neck: Present: non-tender, supple. Absent: lymphadenopathy (R), lymphadenopathy (L) Respiratory: Present: lungs clear, no respiratory distress, no accessory muscle use, No wheezing. Absent: crackles, rhonchi Cardiovascular/Chest: Present: normal peripheral pulses, no edema, no murmur, irregularly irregular Abdomen: Present: Normal bowel sounds, soft, nontender Extremity: Present: no pedal edema Skin Exam: Present: normal color, warm/dry Neurologic: Present: alert, normal mood/affect Appearance: Present: appropriate appearance, appropriate insight Eye contact: Present: cooperative Thoughts: Present: normal thought pattern, normal mood /affect Assessment/Plan Plan Narrative: 89-year-old female with a past medical history of atrial fibrillation, diabetes mellitus, CVA, hypertension, hyperlipidemia, hypothyroidism, depression presents from [facility] with complaints of shortness of breath for the past 2 days. She was found to be hypoxic with oxygen saturation of 86% on room air. She developed A. fib but spontaneously converted while in the ER. Blood work shows a white count of 11.4, hemoglobin 11.3, BNP of 20,513, GFR of 36, her baseline is 38-51. Chest x-ray shows a significant pleural effusion. She was given 1 dose of Lasix in the ER. She will need to be admitted for further management and evaluation of her hypoxia and large left pleural effusion. She is feeling better today but is still requiring oxygen supplementation to keep her O2 sats greater than 90%. On room air she was dropping down to 86 to 88%. I will repeat a chest x-ray today and start her on incentive spirometer. Plan #1 Thoracentesis went well and the pleural fluid appears to be transudate of. #2 Repeat chest x-ray today, start incentive spirometer #3 Continue home medications for comorbidities #4 CBC and CMP in the morning #5 Lovenox. VTE prophylaxis #6 Taper to baseline oxygen as tolerated #7 increase metoprolol to 37.5 mg twice a day, hold lisinopril 5 mg because her blood pressure is in the low normal range. #8 PT evaluation A tiny right pleural effusion, improved but persistent consolidation involving the left lung base, this mostly represents residual pleural fluid and/or atelectasis. Possibility of a superimposed pneumonia cannot be excluded. Clinically she does not appear to have pneumonia. She has no fever, leukocytosis has improved. I will hold off on starting antibiotics at this time. She was evaluated by physical therapy and the staff at [facility] assisted living. [facility] states that she is not independent enough to return at this time. She will need discharge planning to a rehab facility. - Problems/Diagnosis (1) Hypoxia Problem: Acute (2) Pleural effusion, left Problem: Acute (3) Unstable gait Problem: Chronic (4) Diabetes mellitus, type II Problem: Acute Qualifiers: (5) Major depression, chronic Problem: Chronic (6) Hypothyroid Problem: Chronic Qualifiers: (7) Hypertension Problem: Chronic Qualifiers: (8) Hyperlipidemia Problem: Chronic Qualifiers: (9) Atrial fibrillation Problem: Chronic
[2020-08-18] MEDS ORDERED: METOPROLOL TARTRATE 25 MG TABLET PO ONE (13:00)
[2020-08-18] MEDS: GABAPENTIN 100 MG CAPSULE PO SCH (20:11)
[2020-08-18] MEDS: MELATONIN 3,000 MCG TABLET PO SCH (20:12)
[2020-08-19 06:47] LABS: Hematocrit 33.9 % (37.0-47.0); Hemoglobin 10.5 gm/dL (12.5-16.0); Mean Cell Volume 89.4 fl (78-100); Mean Corpuscular Hemoglobin 27.7 pg (27-31); Mean Platelet Volume 8.4 fl (8-12.5); Neutrophil # 6.7 K/mm3 (1.3-6.0); Neutrophil % 71.9 % (42-75.0); Platelet Count 369 K/mm3 (150-450); Red Blood Count 3.79 M/mm3 (4.2-5.4); White Blood Count 9.3 K/mm3 (4.0-10.5)
[2020-08-19 07:03] LABS: Albumin * 2.6 gm/dl (3.4-5.0); Anion Gap 11.4 mmol/L (6.8-13.8); BUN/Creatinine Ratio 26.9 (9.0-21.6); Bilirubin, Total 0.4 mg/dL (0.0-1.1); Ca. Corrected For Albumin 9.3 mg/dL (8.4-10.2); Calcium * 8.5 mg/dL (7.9-10.9); Carbon Dioxide 27.6 mmol/L (24-32.6)
[2020-08-19] MEDS: FLUTICASONE PROPION/SALMETEROL 14 PUFF DISK.W.DEV IH SCH ×2 (08:17→20:17)
[2020-08-19] MEDS: METOPROLOL TARTRATE 25 MG TABLET PO SCH ×2 (08:17→20:18)
[2020-08-19] MEDS: ISOSORBIDE MONONITRATE 30 MG TAB.SR.24H PO SCH (08:17)
[2020-08-19] MEDS: ESCITALOPRAM OXALATE 10 MG TAB PO SCH (08:18)
[2020-08-19] MEDS: FERROUS SULFATE 325 MG TABLET PO SCH (08:18)
[2020-08-19] MEDS: LEVOTHYROXINE SODIUM 88 MCG TABLET PO SCH (08:18)
[2020-08-19] MEDS: POTASSIUM CHLORIDE 10 MEQ TABLET.SA PO SCH ×2 (08:18→08:33)
[2020-08-19] MEDS: hydrALAZINE HCL 25 MG TABLET PO SCH ×3 (08:18→17:38)
--- NOTE | 2020-08-19 13:54 | PN ---
Subjective - Date and Time Seen Date: 08/19/20 Time: 13:48 Subjective Narrative: Very pleasant dividual who recently underwent thoracentesis due to fluid on her lung and shortness of breath. Patient is no longer have shortness of breath, denies any pain at this time. She feels well and has no concerns. Her vital signs are stable and she has been afebrile. Plan for discharge to short-term senior living facility next week. Objective - Review of Systems Generalized/Overall Review: Reports: Weakness. Denies: Chills, Fever EENTM: Reports: No Symptoms Reported Respiratory: Denies: Cough, Shortness of Breath Cardiac: Denies: Chest Pain Abdominal: Reports: No Symptoms Reported Musculoskeletal Complaints: Reports: No Symptoms Reported Skin: Reports: No Symptoms Reported Endocrine: Reports: No Symptoms Reported - Vitals Vitals: Last Vital Signs Temp 36.5 C 08/19/20 13:25 Pulse 73 08/19/20 13:25 Resp 20 08/19/20 13:25 BP 145/57 08/19/20 13:25 Pulse Ox 93 08/19/20 13:25 - Abnormal Lab Findings Abnormal Lab Findings: Abnormal Lab Results 08/19/20 08/19/20 Range/Units 06:40 06:40 RBC 3.79 L (4.2-5.4) M/mm3 Hgb 10.5 L (12.5-16.0) gm/dL Hct 33.9 L (37.0-47.0) % MCHC 31.0 L (32-36) g/dl RDW 16.0 H (11.5-14.0) % Immature Gran % (Auto) 0.60 H (0.001-0.429) % Immature Gran # (Auto) 0.06 H (0.000-0.0310) K/mm3 Lymphocytes % 14.6 L (20-51) % Monocytes % 9.8 H (0.0-9) % Neutrophils # 6.7 H (1.3-6.0) K/mm3 Lymphocytes # 1.36 L (1.5-3.5) k/mm3 Potassium 5.0 H (3.4-4.6) mmol/L BUN 42 H (3-23) mg/dL Creatinine 1.56 H (0.4-1.4) mg/dL Est GFR (Non-Af Amer) 33 L (60-130) mL/min BUN/Creatinine Ratio 26.9 H (9.0-21.6) Albumin 2.6 L (3.4-5.0) gm/dl - Exam Constitutional: Present: Alert, Oriented x3, Cooperative, Elderly ENT Exam: Present: hearing grossly normal Neck: Present: non-tender, supple Respiratory: Present: lungs clear, normal breath sounds Cardiovascular/Chest: Present: regular rate, rhythm, no murmur Abdomen: Present: soft, nontender, nondistended Extremity: Present: normal inspection, no pedal edema Skin Exam: Present: normal color, warm/dry Appearance: Present: appropriate appearance, appropriate insight Eye contact: Present: cooperative, good eye contact Thoughts: Present: normal thought pattern, normal mood /affect Assessment/Plan Plan Narrative: Patient is very pleasant, stable at this time. Vital signs are within normal limits. No chest pain. Still requiring 1 L of oxygen to maintain sats but she is satting well at 93% with 1 L. She is afebrile. CBC shows to have a normal white count, she is mildly anemic at 10.5 with hematocrit of 33.9. Can panel within normal limits aside from a mildly elevated potassium at 5.0, holding potassium at this time. Kidney function at baseline. Pleural fluid studies all appropriate, no concerns for infection. Plan for patient to be discharged to SNF on Friday. Continue current treatment plan, nurse to call questions or concerns. - Problems/Diagnosis (1) Pleural effusion, left Problem: Acute (2) Hypokalemia Problem: Chronic (3) Hypertension Problem: Chronic Qualifiers: (4) Diabetes mellitus, type II Problem: Acute Qualifiers: (5) Hypothyroid Problem: Chronic Qualifiers:
[2020-08-19] MEDS: MELATONIN 3,000 MCG TABLET PO SCH (20:19)
[2020-08-19] MEDS: GABAPENTIN 100 MG CAPSULE PO SCH (20:19)
[2020-08-20] MEDS: LEVOTHYROXINE SODIUM 88 MCG TABLET PO SCH (06:38)
[2020-08-20] MEDS: METOPROLOL TARTRATE 25 MG TABLET PO SCH ×2 (08:10→20:11)
[2020-08-20] MEDS: FLUTICASONE PROPION/SALMETEROL 14 PUFF DISK.W.DEV IH SCH ×2 (08:10→20:10)
[2020-08-20] MEDS: FERROUS SULFATE 325 MG TABLET PO SCH (08:11)
[2020-08-20] MEDS: hydrALAZINE HCL 25 MG TABLET PO SCH ×3 (08:11→18:33)
[2020-08-20] MEDS: ESCITALOPRAM OXALATE 10 MG TAB PO SCH (08:11)
[2020-08-20] MEDS: ISOSORBIDE MONONITRATE 30 MG TAB.SR.24H PO SCH (08:11)
[2020-08-20 09:55] LABS: Anion Gap 10.7 mmol/L (6.8-13.8); BUN/Creatinine Ratio 26.8 (9.0-21.6); Calcium * 8.4 mg/dL (7.9-10.9); Carbon Dioxide 27.9 mmol/L (24-32.6); Estimated Creat Clear 25.2; Potassium 4.6 mmol/L (3.4-4.6)
--- NOTE | 2020-08-20 12:39 | PN ---
Subjective - Date and Time Seen Date: 08/20/20 Time: 12:35 Subjective Narrative: Patient comfortable, resting in bed. No acute events overnight. Vital signs are stable though she still requiring 1 L of oxygen to maintain sats. Vickie usage ordered today to help expand her lungs and hopefully improve her oxygenation. Objective - Review of Systems Generalized/Overall Review: Reports: Weakness. Denies: Chills, Fever EENTM: Reports: No Symptoms Reported Respiratory: Reports: Shortness of Breath. Denies: Cough Cardiac: Reports: No Symptoms Reported Abdominal: Reports: No Symptoms Reported Musculoskeletal Complaints: Reports: No Symptoms Reported Skin: Reports: No Symptoms Reported - Vitals Vitals: Last Vital Signs Temp 37.2 C 08/20/20 10:00 Pulse 96 08/20/20 10:00 Resp 20 08/20/20 10:00 BP 114/65 08/20/20 10:00 Pulse Ox 90 L 08/20/20 10:00 - Abnormal Lab Findings Abnormal Lab Findings: Abnormal Lab Results 08/20/20 Range/Units 09:44 BUN 41 H (3-23) mg/dL Creatinine 1.53 H (0.4-1.4) mg/dL Est GFR (Non-Af Amer) 34 L (60-130) mL/min BUN/Creatinine Ratio 26.8 H (9.0-21.6) Random Glucose 163 H D (70-110) mg/dL - Exam Constitutional: Present: Alert, Oriented x3, Cooperative, No distress, Elderly ENT Exam: Present: hearing grossly normal Respiratory: Present: lungs clear, normal breath sounds Cardiovascular/Chest: Present: regular rate, rhythm, no murmur Abdomen: Present: soft, nontender, nondistended Skin Exam: Present: normal color, warm/dry Appearance: Present: appropriate appearance, appropriate insight Eye contact: Present: cooperative, good eye contact, normal speech Thoughts: Present: normal thought pattern, normal mood /affect Assessment/Plan Plan Narrative: Patient resting comfortably in her bed without concerns today. Awaiting placement which should happen either tomorrow or the next day. Patient potassium returned to normal today. Kidney function remains unchanged and is likely at her baseline with a creatinine of close to 1.5. Patient still requiring 1 L nasal cannula to maintain sats above 90%. Coronary ordered, advised patient to use often to help open her airway and improve oxygenation. Patient stated understanding to this and was in agreement with it. Nurse will work with her on this. The rest of her vital signs been stable otherwise and she has no concerns. States she feels well. She denies chest pain at the chest tube insertion site. Continue current treatment plan, increase ambulation, increase sitting in her chair. Nurse to call questions or concerns. - Problems/Diagnosis (1) Pleural effusion, left Problem: Acute (2) Hypokalemia Problem: Chronic (3) Hypertension Problem: Chronic Qualifiers: (4) Diabetes mellitus, type II Problem: Acute Qualifiers: (5) Hypothyroid Problem: Chronic Qualifiers:
[2020-08-20] MEDS: MELATONIN 3,000 MCG TABLET PO SCH (20:12)
[2020-08-20] MEDS: GABAPENTIN 100 MG CAPSULE PO SCH (20:13)
[2020-08-21 06:52] LABS: Hematocrit 35.9 % (37.0-47.0); Hemoglobin 10.8 gm/dL (12.5-16.0); Mean Cell Volume 90.2 fl (78-100); Mean Corpuscular Hemoglobin 27.1 pg (27-31); Mean Corpuscular Hgb Conc 30.1 g/dl (32-36); Mean Platelet Volume 8.4 fl (8-12.5); Neutrophil # 9.7 K/mm3 (1.3-6.0); Neutrophil % 78.4 % (42-75.0); Platelet Count 366 K/mm3 (150-450); Red Blood Count 3.98 M/mm3 (4.2-5.4); Red Cell Distribution Width 15.7 % (11.5-14.0); White Blood Count 12.3 K/mm3 (4.0-10.5)
[2020-08-21 07:11] LABS: Anion Gap 10.3 mmol/L (6.8-13.8); BUN/Creatinine Ratio 26.4 (9.0-21.6); Calcium * 8.6 mg/dL (7.9-10.9); Carbon Dioxide 28.5 mmol/L (24-32.6); Estimated Creat Clear 27.6; Potassium 4.8 mmol/L (3.4-4.6)
[2020-08-21] MEDS: LEVOTHYROXINE SODIUM 88 MCG TABLET PO SCH (07:45)
[2020-08-21] MEDS: METOPROLOL TARTRATE 25 MG TABLET PO SCH (09:21)
[2020-08-21] MEDS: hydrALAZINE HCL 25 MG TABLET PO SCH (09:22)
[2020-08-21] MEDS: ESCITALOPRAM OXALATE 10 MG TAB PO SCH (09:22)
[2020-08-21] MEDS: FERROUS SULFATE 325 MG TABLET PO SCH (09:22)
[2020-08-21] MEDS: ISOSORBIDE MONONITRATE 30 MG TAB.SR.24H PO SCH (09:22)
[2020-08-21] MEDS: FLUTICASONE PROPION/SALMETEROL 14 PUFF DISK.W.DEV IH SCH (09:33)
--- NOTE | 2020-08-21 09:52 | DS ---
(1) Pleural effusion, left Problem: Acute (2) Hypoxia Problem: Acute (3) Unstable gait Problem: Chronic (4) Diabetes mellitus, type II Problem: Acute Qualifiers: (5) Major depression, chronic Problem: Chronic (6) Hypothyroid Problem: Chronic Qualifiers: (7) Hypertension Problem: Chronic Qualifiers: (8) Hyperlipidemia Problem: Chronic Qualifiers: (9) Atrial fibrillation Problem: Chronic (10) Weakness Problem: Acute Hospital Course: 89-year-old female with a past medical history of atrial fibrillation, diabetes mellitus, CVA, hypertension, hyperlipidemia, hypothyroidism, depression presents from [facility] with complaints of shortness of breath for the past 2 days. She was found to be hypoxic with oxygen saturation of 86% on room air. She developed A. fib but spontaneously converted while in the ER. Blood work shows a white count of 11.4, hemoglobin 11.3, BNP of 20,513, GFR of 36, her baseline is 38-51. Chest x-ray shows a significant pleural effusion. She was given 1 dose of Lasix in the ER. She will need to be admitted for further management and evaluation of her hypoxia and large left pleural effusion. She is feeling better today but is still requiring oxygen supplementation to keep her O2 sats greater than 90%. On room air she was dropping down to 86 to 88%. A chest x-ray was repeated on August 18 and showed, a tiny right pleural effusion, improved but persistent consolidation involving the left lung base, this mostly represents residual pleural fluid and/or atelectasis. Possibility of a superimposed pneumonia cannot be excluded. Clinically she did not appear to have pneumonia. She had no fever, no cough and shortness of breath has improved. She was evaluated by physical therapy and the staff at [facility]. [facility] states that she is not independent enough to return at this time. She will need discharge planning to a rehab facility. She is stable to be discharged to the [facility] for rehab today. She will need to follow-up with pulmonology regarding the work-up for the etiology of the left pleural effusion. Procedures Performed: see notes below List Procedures: Left thoracentesis on August 17, 2019. Results and Findings: Pending Mircobiology Results 08/16/20 16:08 Blood Blood Culture - Preliminary NO GROWTH AFTER 48 HOURS 08/16/20 16:05 Blood Blood Culture - Preliminary NO GROWTH AFTER 48 HOURS Lab Pending Results 08/16/20 16:05: WBC 11.4 H, RBC 4.19 L, Hgb 11.3 L, Hct 37.1, MCV 88.5, MCH 27.0, MCHC 30.5 L, RDW 15.6 H, Plt Count 406, MPV 8.6, Immature Gran % (Auto) 0.50 H, Immature Gran # (Auto) 0.06 H, Neutrophils % 78.0 H, Lymphocytes % 11.6 L, Monocytes % 7.7, Eosinophils % 1.8, Basophils % 0.4, Nucleated RBC % 0.0, Neutrophils # 8.9 H, Lymphocytes # 1.32 L, Monocytes # 0.9, Eosinophils # 0.2, Absolute Basophils 0.1 08/16/20 16:05: PT 12.0 H, INR (Anticoag Therapy) 1.22 H, PTT (Benzie) 27.3 08/16/20 16:05: Sodium 136, Plasma Sodium 137, Potassium 4.9 H D, Chloride 102, Carbon Dioxide 24.2, Anion Gap 14.7 H, BUN 37 H, Creatinine 1.47 H, Est GFR (Non-Af Amer) 36 L, BUN/Creatinine Ratio 25.2 H, Random Glucose 137 H, Calcium 8.5, Calcium Adj for Albumin 9.1, Magnesium 2.4, Total Bilirubin 0.4, AST 30, ALT 25, Alkaline Phosphatase 136, Troponin I Less than 0.017, B-Natriuretic Peptide 53942 H, Total Protein 7.7, Albumin 2.9 L 08/16/20 16:05: Lactic Acid, Venous 1.3 08/16/20 17:50: Urine Color Yellow, Urine Appearance Clear, Urine pH 5.5, Ur Specific [place] >=1.030, Urine Protein 100 H, Urine Glucose (UA) Negative, Urine Ketones Negative, Urine Blood Negative, Urine Nitrate Negative, Urine Bilirubin Negative, Urine Urobilinogen Normal, Ur Leukocyte Esterase 25 H, Urine RBC Trace, Urine WBC 10-25 H, Ur Epithelial Cells 0-5, Amorphous Sediment Few - 1+, Urine Bacteria 2+ H, Urine Culture Comments Culture to follow 08/16/20 17:50: SARS-CoV-2 (PCR) Not detected 08/17/20 06:00: Lactate Dehydrogenase 231 08/17/20 06:16: WBC 8.9 D, RBC 3.96 L, Hgb 10.8 L, Hct 35.4 L, MCV 89.4, MCH 27.3, MCHC 30.5 L, RDW 15.6 H, Plt Count 375, MPV 8.5, Immature Gran % (Auto) 0.60 H, Immature Gran # (Auto) 0.05 H, Neutrophils % 69.4, Lymphocytes % 15.5 L, Monocytes % 9.8 H, Eosinophils % 4.1 H, Basophils % 0.6, Nucleated RBC % 0.0, Neutrophils # 6.2 H, Lymphocytes # 1.39 L, Monocytes # 0.9, Eosinophils # 0.4, Absolute Basophils 0.1 08/17/20 06:16: Sodium 136, Plasma Sodium 136, Potassium 4.5, Chloride 103, Carbon Dioxide 27.9, Anion Gap 9.6, BUN 38 H, Creatinine 1.49 H, Est GFR (Non-Af Amer) 35 L, BUN/Creatinine Ratio 25.5 H, Random Glucose 81 D, Calcium 8.5, Calcium Adj for Albumin 9.2, Total Bilirubin 0.4, AST 35, ALT 30, Alkaline Phosphatase 128, Total Protein 7.3, Albumin 2.7 L 08/17/20 06:16: PT 12.3 H, INR (Anticoag Therapy) 1.25 H, PTT (Benzie) 27.1 08/17/20 13:45: Pleural Total Protein 3.5, Pleural LDH 148, Pleural Glucose 120, Pleural Amylase 14 08/17/20 13:45: Pleural pH 7.0 08/17/20 13:45: Miscellaneous Cytology Spec. sent to path. 08/18/20 06:31: WBC 9.1, RBC 3.79 L, Hgb 10.4 L, Hct 34.2 L, MCV 90.2, MCH 27.4, MCHC 30.4 L, RDW 15.6 H, Plt Count 360, MPV 8.6, Immature Gran % (Auto) 0.40, Immature Gran # (Auto) 0.04 H, Neutrophils % 70.1, Lymphocytes % 15.5 L, Monocytes % 9.8 H, Eosinophils % 3.9 H, Basophils % 0.3, Nucleated RBC % 0.0, Neutrophils # 6.4 H, Lymphocytes # 1.41 L, Monocytes # 0.9, Eosinophils # 0.4, Absolute Basophils 0.0 08/18/20 06:31: Sodium 140, Plasma Sodium 140, Potassium 4.7 H, Chloride 105, Carbon Dioxide 29.8, Anion Gap 9.9, BUN 39 H, Creatinine 1.54 H, Est GFR (Non-Af Amer) 34 L, BUN/Creatinine Ratio 25.3 H, Random Glucose 86, Calcium 8.2, Calcium Adj for Albumin 9.1, Total Bilirubin 0.4, AST 22, ALT 21, Alkaline Phosphatase 122, Total Protein 6.7, Albumin 2.5 L 08/19/20 06:40: WBC 9.3, RBC 3.79 L, Hgb 10.5 L, Hct 33.9 L, MCV 89.4, MCH 27.7, MCHC 31.0 L, RDW 16.0 H, Plt Count 369, MPV 8.4, Immature Gran % (Auto) 0.60 H, Immature Gran # (Auto) 0.06 H, Neutrophils % 71.9, Lymphocytes % 14.6 L, Monocytes % 9.8 H, Eosinophils % 2.5, Basophils % 0.6, Nucleated RBC % 0.0, Neutrophils # 6.7 H, Lymphocytes # 1.36 L, Monocytes # 0.9, Eosinophils # 0.2, Absolute Basophils 0.1 08/19/20 06:40: Sodium 139, Plasma Sodium 139, Potassium 5.0 H, Chloride 105, Carbon Dioxide 27.6, Anion Gap 11.4, BUN 42 H, Creatinine 1.56 H, Est GFR (Non- Af Amer) 33 L, BUN/Creatinine Ratio 26.9 H, Random Glucose 108, Calcium 8.5, Calcium Adj for Albumin 9.3, Total Bilirubin 0.4, AST 23, ALT 23, Alkaline Phosphatase 130, Total Protein 7.0, Albumin 2.6 L 08/20/20 09:44: Sodium 140, Plasma Sodium 141, Potassium 4.6, Chloride 106, Carbon Dioxide 27.9, Anion Gap 10.7, BUN 41 H, Creatinine 1.53 H, Est GFR (Non- Af Amer) 34 L, BUN/Creatinine Ratio 26.8 H, Random Glucose 163 H D, Calcium 8.4 08/21/20 06:44: WBC 12.3 H D, RBC 3.98 L, Hgb 10.8 L, Hct 35.9 L, MCV 90.2, MCH 27.1, MCHC 30.1 L, RDW 15.7 H, Plt Count 366, MPV 8.4, Immature Gran % (Auto) 0.50 H, Immature Gran # (Auto) 0.06 H, Neutrophils % 78.4 H, Lymphocytes % 10.3 L, Monocytes % 9.7 H, Eosinophils % 0.7, Basophils % 0.4, Nucleated RBC % 0.0, Neutrophils # 9.7 H, Lymphocytes # 1.27 L, Monocytes # 1.2 H, Eosinophils # 0.1, Absolute Basophils 0.1 08/21/20 06:44: Sodium 139, Plasma Sodium 139, Potassium 4.8 H, Chloride 105, Carbon Dioxide 28.5, Anion Gap 10.3, BUN 37 H, Creatinine 1.40, Est GFR (Non-Af Amer) 38 L, BUN/Creatinine Ratio 26.4 H, Random Glucose 112 H D, Calcium 8.6 Discharge Location: Other - [facility] Disposition: SNF Condition: Fair Level of Care: SNF Discharge Activity: Activity as tolerated Discharge Diet: Low salt Prison Therapy: Physical Therapy, Occupation Therapy Referrals: Susannah Reagan MD [Primary Care Provider] - Additional Patient Instructions (free text): [facility]- PT, OT to evaluate and treat Follow up with [facility] pulmonology in the next week. Oxygen at 1 L nasal cannula to keep oxygen saturations above 90%. May wean as able. Complete Home Medications List: Complete Home Medication List: bisacodyl 10 mg rectal suppository 10 mg MO DAILY PRN #0.1 ea 03/22/19 bismuth subsalicylate 262 mg/15 mL oral suspension 524 mg PO Q6H PRN ml 11/25/19 Ascorbic Acid [Vitamin C] 500 mg PO DAILY 12/22/19 aspirin 325 mg tablet 325 mg PO DAILY #28 tab 04/13/20 ferrous sulfate 325 mg (65 mg iron) tablet 325 mg PO DAILY #30 tab 05/05/20 metoprolol tartrate 25 mg tablet 25 mg PO BID #60 tab 05/05/20 mirtazapine 30 mg tablet 30 mg PO HS #30 tab 05/05/20 escitalopram oxalate 10 mg tablet 10 mg PO DAILY #30 tab 05/08/20 gabapentin 100 mg capsule 100 mg PO HS #30 cap 05/08/20 isosorbide mononitrate 30 mg tablet,extended release 24 hr 30 mg PO DAILY #30 tab 05/08/20 levothyroxine 88 mcg tablet 88 mcg PO DAILY #30 tab 05/08/20 hydralazine 25 mg tablet 25 mg PO TID #90 tab 06/07/20 melatonin 3 mg capsule 3 mg PO HS #30 cap 07/19/20 Acetaminophen 650 mg PO Q4H PRN 08/16/20 Albuterol Sulfate [Ventolin HFA] 2 puff IH Q4H PRN 08/16/20 Beta-Carotene(A) W-C , E/Min [Ocuvite] 1 tab PO BID 08/16/20 Fluticasone/Vilanterol [Breo Ellipta 100-25 Mcg INH] 1 inh INH DAILY 08/16/20 Magnesium Hydroxide [Milk Of Magnesia] 30 ml PO DAILY PRN 08/16/20 Potassium Chloride 10 meq PO DAILY 08/16/20 Sennosides/Docusate Sodium [Stimulant Laxative Plus Tablet] 2 ea PO DAILY PRN 08/16/20 Forms: Patient Portal Registration
[2020-08-21 15:01] VITALS: BP 131/55
== END 2020-08-21 12:35 | DRG 188 ==
LOC: ER 15:42 → MS 15:42
PROVIDERS: ADMIT Internal Medicine; ATTEND Internal Medicine
DX: E11.9 Type 2 diabetes mellitus without complications; I10 Essential (primary) hypertension; J90 Pleural effusion, not elsewhere classified; F32.9 Major depressive disorder, single episode, unspecified; I48.91 Unspecified atrial fibrillation; E03.9 Hypothyroidism, unspecified; E78.5 Hyperlipidemia, unspecified